=== PATIENT | female | born 1970 | race Caucasian/White ===

== ENCOUNTER 2017-03-11 12:09 | Inpatient (IN) | payer OTHER ==
[~2017-03-11] VITALS: Ht 165.1 cm; Wt 72.4 kg
[2017-03-11 12:10] VITALS: Ht 165.1 cm; Wt 72.4 kg
[2017-03-11] MEDS ORDERED: HYDROmorphONE 1 MG/ML SYG IV STA ×2 (12:36→18:58)
[2017-03-11] MEDS ORDERED: ONDANSETRON 4 MG INJ IV STA (12:36)
[2017-03-11 13:34] LABS: ABNORMAL IP MESSAGE 1; BASOPHILS % 0.3 % (0.0-2.0); EOSINOPHILS # 0.1 10^3/ul (0.0-0.5); EOSINOPHILS % 0.4 % (0.0-7.0); HEMATOCRIT 38.9 % (37.0-47.0); HEMOGLOBIN 13.3 g/dl (12.0-16.0); LYMPHOCYTES # 1.3 10^3/ul (0.8-2.9); LYMPHOCYTES % 9.8 % (15.0-51.0); MEAN CORPUSCULAR HGB CONC 34.2 g/dl (32.0-37.0); MEAN CORPUSCULAR VOLUME 93.7 fl (82.0-101.0); MEAN PLATELET VOLUME 10.4 fl (7.4-10.4); MONOCYTE # 1.5 10^3/ul (0.3-0.9); MONOCYTES % 11.2 % (0.0-11.0); NEUTROPHIL # 10.6 10^3/ul (1.6-7.5); NEUTROPHILS % 77.9 % (39.0-77.0); PLATELET COUNT 281 10^3/UL (140-415); RED BLOOD COUNT 4.15 10^6/ul (4.20-5.40); RED CELL DISTRIBUTION WIDTH 12.8 % (11.5-14.5); WHITE BLOOD COUNT 13.6 10^3/ul (4.8-10.8)
[2017-03-11 13:41] LABS: POSITIVE DIFF @See below
[2017-03-11 13:57] LABS: CALCIUM 9.3 mg/dl (8.4-10.2); CREATININE 0.73 mg/dl (0.44-1.00); POTASSIUM 3.6 mmol/L (3.5-5.1)
[2017-03-11 14:09] LABS: C-REACTIVE PROTEIN 14.2 mg/dl (0.0-0.9)
[2017-03-11] MEDS ORDERED: LIDOCAINE 1% (MDV) 20 ML INJ SC ONE (14:30)
--- NOTE | 2017-03-11 14:55 | RADRPT ---
PROCEDURE: CT left hip without contrast. CLINICAL INDICATION: Leg pain TECHNIQUE: CT scan of the left hip was performed on a multi -slice scanner. No IV contrast was ad ministered. Coronal and sagittal reformatted images were obtained from the axial source images. Th e total exam DLP equals 549 mGy-cm. The CDTI volume was 18 mGy. Images were reviewed on a high-resol Xspand PACS workstation. One or more of the following dose reduction techniques were used: Automated exposure control Adjustment of the mA and/or kV according to patient size. Use of iterative reconstruction technique. COMPARISON: None. FINDINGS: There is no acute fracture or dislocation. There is minimal joint space narrowing along the anterior aspect of the left hip joint with minimal osseous spurring. There is no avascular necrosis or bony destructive changes. No cortical destruction or periosteal reaction is present. There is a moderate joint effusion. The muscles and soft tissues around the left hip are otherwise unremarkable. The fat planes around t he sciatic nerve are unremarkable. The visualized left sacroiliac joint is intact. Pubic symphysis is intact with mild osseous spurring . RPTAT: ZZ IMPRESSION: 1. Minimal osteoarthrosis of the left hip. No acute fracture or dislocation. 2. Moderate joint effusion. A follow-up MRI of the left hip may be helpful for additional evaluation . .Isamar Mccrary MD, MD Date Time Electronically viewed and signed by .Isamar Mccrary MD, MD on 03/11/2017 14:55 .T/
[2017-03-11] MEDS ORDERED: BUPIVACAINE 0.5% 30 ML VIAL INJ ONE (16:00)
[2017-03-11] MEDS ORDERED: METHYLPREDNISOLONE 40 MG INJ IV ONE (16:00)
[2017-03-11] MEDS ORDERED: LIDOCAINE 1% (MDV) 20 ML INJ ONE (17:22)
[2017-03-11] MEDS ORDERED: IOHEXOL 300MG/ML 30 ML BTL ONE (17:22)
[2017-03-11] MEDS ORDERED: ACETAMINOPHEN 325 MG TAB PO ONE (17:30)
--- NOTE | 2017-03-11 17:42 | ERA ---
ER Documentation Chief Complaint Date/Time DATE: 03/11/17 TIME: 17:30 Chief Complaint LEFT THIGH PAIN DOWN TO LEFT LEG X 2 DAYS, DENIES INJURY HPI This a 46-year-old female with a history of rheumatoid arthritis complains of pain in the left hip and left thigh for the past 2 days. She says she has had this before and is likely rheumatoid arthritis flareup. She says that she has had some chills but has not documented a fever. Pain is sharp in the left hip radiates down the medial part of the thigh severe pain with movement is better with rest but still there. No swelling of other joints. ROS All systems reviewed and are negative except as per history of present illness. Medications Home Meds Reported Medications Methotrexate* (Methotrexate*) 2.5 Mg Tab, 20 MG PO WEEKLY, TAB 03/11/17 [Ferrous Sulfate 5GR] No Conflict Check, 1 TAB PO BID 03/11/17 [Wild-Plex 85MG] No Conflict Check, 1 CAP PO DAILY 03/11/17 Docusate Sodium* (Colace*) 100 Mg Capsule, 100 MG PO BID, #60 CAP 03/11/17 Folic Acid* (Folic Acid*) 1 Mg Tablet, 1 MG PO DAILY, TAB 03/11/17 Omeprazole* (Omeprazole*) 20 Mg Capsule.dr, 20 MG PO DAILY, #30 CAP 03/11/17 Allergies Allergies: Coded Allergies: No Known Allergy (Unverified , 03/11/17) PMhx/Soc History of Surgery: No Anesthesia Reaction: No Hx Neurological Disorder: No Hx Respiratory Disorders: No Hx Cardiac Disorders: No Hx Psychiatric Problems: No Hx Miscellaneous Medical Probl: Yes (RA) Hx Alcohol Use: No Hx Substance Use: No Hx Tobacco Use: No Smoking Status: Never smoker FmHx Family History: No coronary disease Physical Exam Vitals Vital Signs Date Time Temp Pulse Resp B/P Pulse Ox O2 Delivery O2 Flow Rate FiO2 03/11/17 16:05 100.0 77 18 108/65 99 Room Air 03/11/17 12:10 97.5 72 18 113/55 99 Physical Exam Const: Well-developed, well-nourished Head: Atraumatic, normocephalic Eyes: Normal Conjunctiva, PERRLA, EOMI, normal sclera, no nystagmus ENT: Normal External Ears, Nose and Mouth, moist mucus membranes. Neck: Full range of motion. No meningismus, no lymphadenopathy. Resp: Clear to auscultation bilaterally, no wheezing, rhonchi, rales Cardio: Regular rate and rhythm, no murmurs, S1 S2 present Abd: Soft, non tender x 4, non distended. Normal bowel sounds, no guarding or rebound, no pulsitile abdominal masses or bruits Skin: No petechiae or rashes, no ecchymosis , no maculopapular rash Back: No midline or flank tenderness Ext: No cyanosis, or edema, FROM x 3, normal inspection, neurovascularly intact x 4, there is severe pain in the left hip with range of motion. Neur: Awake and alert, STR 5/5 x 4, sensation intact x 4, no focal findings, cerebellum intact Psych: Normal Mood and Affect Result Diagram: 03/11/17 1313 03/11/17 1313 Results 24 hrs Laboratory Tests Test 03/11/17 13:13 White Blood Count 13.610^3/ul Red Blood Count 4.1510^6/ul Hemoglobin 13.3g/dl Hematocrit 38.9% Mean Corpuscular Volume 93.7fl Mean Corpuscular Hemoglobin 32.0pg Mean Corpuscular Hemoglobin Concent 34.2g/dl Red Cell Distribution Width 12.8% Platelet Count 87638^3/UL Mean Platelet Volume 10.4fl Neutrophils % 77.9% Lymphocytes % 9.8% Monocytes % 11.2% Eosinophils % 0.4% Basophils % 0.3% Nucleated Red Blood Cells % 0.0/100WBC Neutrophils # 10.610^3/ul Lymphocytes # 1.310^3/ul Monocytes # 1.510^3/ul Eosinophils # 0.110^3/ul Basophils # 0.010^3/ul Nucleated Red Blood Cells # 0.010^3/ul Erythrocyte Sedimentation Rate 40mm/Hr Sodium Level 139mmol/L Potassium Level 3.6mmol/L Chloride Level 105mmol/L Carbon Dioxide Level 25mmol/L Anion Gap 13 Blood Urea Nitrogen 11mg/dl Creatinine 0.73mg/dl Glucose Level 124mg/dl Calcium Level 9.3mg/dl C-Reactive Protein 14.2mg/dl Serum HCG, Qualitative NEGATIVE Current Medications Medications (Trade) Dose Ordered Sig/Emerita Route PRN Reason Start Time Stop Time Status Last Admin Dose Admin Hydromorphone HCl (Dilaudid) 1 mg ONCE STAT IV 03/11/17 12:36 03/11/17 12:40 DC 03/11/17 13:14 Ondansetron HCl (Zofran Inj) 4 mg ONCE STAT IV 03/11/17 12:36 03/11/17 12:40 DC 03/11/17 13:14 Lidocaine (Xylocaine 1% (Mdv) 20 ml) 20 ml ONCE ONCE SC 03/11/17 14:30 03/11/17 14:31 DC 03/11/17 15:10 Methylprednisolone Sodium Succinate (Solu-Medrol) 40 mg ONCE ONCE IV 03/11/17 16:00 03/11/17 16:01 DC Bupivacaine HCl (Marcaine 0.5%) 3 ml ONCE ONCE INJ 03/11/17 16:00 03/11/17 16:01 DC Acetaminophen (Tylenol Tab) 650 mg ONCE ONCE PO 03/11/17 17:30 03/11/17 17:31 DC 03/11/17 17:05 Iohexol (Omnipaque 300mg/ ml) 30 ml STK-MED ONCE .ROUTE 03/11/17 17:22 03/11/17 17:23 DC Lidocaine (Xylocaine 1% (Mdv) 20 ml) 20 ml STK-MED ONCE .ROUTE 03/11/17 17:22 03/11/17 17:23 DC Ondansetron HCl (Zofran Inj) 4 mg BRIDGE ORDER PRN IV NAUSEA AND/OR VOMITING 03/11/17 19:00 03/12/17 18:59 Acetaminophen 650 mg 650 mg ER BRIDGE PRN PO MILD PAIN/FEVER 03/11/17 19:00 03/12/17 18:59 Cefepime HCl 50 ml @ 100 mls/hr ONCE STAT IVPB 03/11/17 18:47 03/11/17 19:16 UNV Vancomycin HCl (Vancocin) 250 ml @ 125 mls/hr ONCE ONCE IVPB 03/11/17 19:00 03/11/17 20:59 UNV Procedures/MDM PROCEDURE: CT left hip without contrast. CLINICAL INDICATION: Leg pain TECHNIQUE: CT scan of the left hip was performed on a multi -slice scanner. No IV contrast was administered. Coronal and sagittal reformatted images were obtained from the axial source images. The total exam DLP equals 549 mGy-cm. The CDTI volume was 18 mGy. Images were reviewed on a high-resolution PACS workstation. One or more of the following dose reduction techniques were used: Automated exposure control Adjustment of the mA and/or kV according to patient size. Use of iterative reconstruction technique. COMPARISON: None. FINDINGS: There is no acute fracture or dislocation. There is minimal joint space narrowing along the anterior aspect of the left hip joint with minimal osseous spurring. There is no avascular necrosis or bony destructive changes. No cortical destruction or periosteal reaction is present. There is a moderate joint effusion. The muscles and soft tissues around the left hip are otherwise unremarkable. The fat planes around the sciatic nerve are unremarkable. The visualized left sacroiliac joint is intact. Pubic symphysis is intact with mild osseous spurring. RPTAT: ZZ IMPRESSION: 1. Minimal osteoarthrosis of the left hip. No acute fracture or dislocation. 2. Moderate joint effusion. A follow-up MRI of the left hip may be helpful for additional evaluation. .Isamar Mccrary MD, MD Date Time Electronically viewed and signed by .Isamar Mccrary MD, MD on 03/11/2017 14: 55 .T/ CC: VICK RAM DO Arthrocentesis by me: Patient consented, sterilely draped, full prep, time out performed. Anesthesia: 1% lidocaine locally Location: Left hip Technique: 23 gauge spinal needle aspiration Results: 0 ml of serous fluid Complications: Minimal bleeding. No complications. ED Ultrasound: Joint effusion localized by me using concurrent ultrasound guidance and assessment of the anatomy. Real time image archived in the medical record confirms anatomy. Unable to aspirate any fluid out of hip. The CT scan shows that there is layering posteriorly. Or the fluid is just too thick to aspirate. Spoke with radiology he will get the fluid out via fluoroscopy Patient is elevated white blood count, CRP, sed rate. Patient developed a 100.1 temperature here. We will admit the patient for septic left hip. Versus rheumatoid arthritis exacerbation spoke to dr mccallum. of ortho . will see pending cell count and diff/ tap results IR was able to get fluid out of the left hip. Fluid looks very cloudy yellow will start antibiotics now and blood cultures Departure Diagnosis: Primary Impression: Septic joint Qualified Code: M00.9 - Pyogenic arthritis of left hip, due to unspecified organism Condition: Stable VICK RAM DO Mar 11, 2017 17:42
[2017-03-11] MEDS ORDERED: FOLI-49 PO (17:52)
[2017-03-11] MEDS ORDERED: DOCU-144 PO (17:52)
[2017-03-11] MEDS ORDERED: OMEP20CA16 PO (17:52)
[2017-03-11] MEDS ORDERED: [UNRECOGNIZED DRUG - OTHER] PO (17:53)
[2017-03-11] MEDS ORDERED: FERROUS SULFATE PO (17:54)
[2017-03-11] MEDS ORDERED: MET25 PO (17:56)
[2017-03-11] MEDS ORDERED: CEFEPIME 2GM/50 ML (PMX) 50 ML IVPB STA (18:47)
[2017-03-11] MEDS ORDERED: ONDANSETRON 4 MG INJ IV PRN ×2 (19:00)
[2017-03-11] MEDS ORDERED: DOCUSATE SODIUM 100 MG CAP PO PRN (19:00)
[2017-03-11] MEDS ORDERED: ACETAMINOPHEN 325 MG TAB PO PRN ×2 (19:00)
[2017-03-11] MEDS ORDERED: VANCOMYCIN IV PER PHARMACY XX SCH (19:00)
[2017-03-11] MEDS ORDERED: LORAZEPAM 2 MG INJ IV PRN (19:00)
[2017-03-11] MEDS ORDERED: MAGNESIUM HYDROXIDE 30ML CUP PO PRN (19:00)
[2017-03-11] MEDS ORDERED: hydrALAzine 20 MG INJ IV PRN (19:00)
[2017-03-11] MEDS ORDERED: NA PHOSPHATE/BIPHOS 133 ML ENEMA PR PRN (19:00)
[2017-03-11] MEDS ORDERED: ALBUTEROL/IPRATROPIUM (NEB) 3 ML AMP HHN PRN (19:00)
[2017-03-11] MEDS ORDERED: NITROGLYCERIN (SL) 0.4 MG TAB SL PRN (19:00)
[2017-03-11] MEDS ORDERED: VANCOMYCIN 1 GM (PMX) 250 ML IVPB ONE (19:00)
[2017-03-11] MEDS ORDERED: NACL 0.9% 3 ML SYG IV SCH (19:00)
[2017-03-11 19:02] VITALS: TEMP 99.2
--- NOTE | 2017-03-11 19:11 | RADRPT ---
PROCEDURE: Fluoroscopy-guided left hip joint aspiration. CLINICAL INDICATION: Left hip pain. TECHNIQUE: The risk and benefits of the procedure were explained to the patient including but not limited to bleeding, infection, pain, and failed procedure. The patient understood the risks benefi ts and alternatives of the procedure and wished to proceed with the examination. Informed written c onsent was obtained. A preliminary time-out was performed. Utilizing CT guidance, an 18-gauge need le was introduced into the left femoral acetabular compartment after the region was prepared and howie ped in the usual sterile fashion. Approximately 4.5 cc of yellow, viscous, mildly cloudy fluid was aspirated. The needle was removed and a bandage was placed. The patient tolerated the procedure well . Number of images obtained: 4. Fluoroscopy time: 0.7 minutes. Estimated cumulative dose: 11.2 mGy. COMPARISON: Correlation with CT lower extremity from the same day. FINDINGS: Successful fluoroscopy-guided left hip joint aspiration. Approximately 4.5 cc of viscous, mildly jose udy, yellow fluid was aspirated and sent to the laboratory for further evaluation. IMPRESSION: Successful left hip joint aspiration as above. RPTAT: QQ .Dwight Leija MD, Date Time Electronically viewed and signed by .Dwight Leija MD, MD on 03/11/2017 19:11 .A/
[2017-03-11 19:22] LABS: FLD PMN% 89.3 %; FLD RBC 16 /uL; FLD WBC 82538 /cmm
[2017-03-11 19:49] LABS: FLD MN% 10.7 %
[2017-03-11 19:50] LABS: FLD CLARITY CLOUDY; FLD COLOR OPAQUE; FLD TYPE LEFT HIP ASPIRATE
--- NOTE | 2017-03-11 20:25 | HP ---
DATE OF ADMISSION: 03/11/2017 CHIEF COMPLAINT: Left leg and hip pain. HISTORY OF PRESENT ILLNESS: A 46-year-old with past medical history of rheumatoid arthritis and anemia, who has been having left hip pain and left thigh pain for the last few days. She denies any prior history of this. Denies any trauma to the area. No recent surgeries. She has been having subjective chills at home, but no fever. She took Tylenol and Motrin at home, which did not relieve her symptoms. Pain is described as sort of a sharp in intensity radiating down the medial part of her thigh. No chest pain or shortness of breath. No upper lower GI bleeding. No diarrhea or constipation. No nausea or vomiting. When she arrives to the ER today she was found with a temperature 100.0, and her white count was also elevated as well. The ER performed a tap, concern about septic infection and apparently the Orthopedic Surgery was actually also call the help consult on the case. The patient also complained of some right shoulder pain and this is for the last 1 or 2 days. She also has been using a cane to help her ambulate for last couple of days. PAST MEDICAL HISTORY: Above. ALLERGIES: NO KNOWN DRUG ALLERGIES. HOME MEDICATIONS: Methotrexate 20 mg every week, Colace 100 mg twice a day, omeprazole 20 mg daily, folic acid 1 mg daily, and ferrous sulfate 1 tab twice a day. PAST SURGICAL HISTORY: She has had times 2 in the past, tummy tuck surgery in past, and breast augmentation surgery. FAMILY HISTORY: Mother positive rheumatoid arthritis. SOCIAL HISTORY: Negative for smoking, drinking, or IV drug abuse. PHYSICAL EXAMINATION: VITAL SIGNS: T-max 100.0, pulse 70-77, respirations 18, blood pressure 113/55, and satting 99 percent room air. GENERAL: Patient lying in bed, answers question appropriately. In mild distress but alert. HEENT: Pupils equal, round, react to light. Extraocular muscles intact. NECK: Supple. No thyromegaly. LUNGS: Clear to auscultation bilaterally. CARDIOVASCULAR: S1, S2 heard. No rubs, gallops. ABDOMEN: Soft, nontender, nondistended. Normal bowel sounds. No rebound or guarding. MUSCULOSKELETAL: No lower extremity edema bilaterally. There is some pain with range of motion of the left hip with some tenderness to palpation in the left hip area. NEUROLOGIC: No focal deficits. LABS: WBC 13.6, hemoglobin 13.3, hematocrit 38.9, and platelets 281. The basic metabolic panel is normal. CRP is 14.2, ESR is 40, both are elevated. She had a CT performed of the left hip that showed minimal osteoarthrosis of the left hip, but no fractures or dislocations. There is moderate joint effusion as well. ASSESSMENT/PLAN: A 46-year-old female coming in with left hip pain with signs of possible septic joint infections. 1. Left hip pain and fever. We will admit the patient to Med Surg floor. Again concerned about a septic joint. Again we will follow up final culture results from the fluid that was aspirated earlier today. Put her on broad-spectrum antibiotics. Get ID consult. Tylenol p.r.n. pain and fevers. Also check TSH, A1c, and lipid panel. Follow up Orthopedic recommendations as well. Consider PT consult as well. 2. History of rheumatoid arthritis. Continue to monitor for now. The patient does take methotrexate weekly. We will need to discuss further with her when her next dose is due. Continue folic acid. 3. History of anemia. Hemoglobin is presently stable. Monitor for now. No signs of any bleeding. 4. Deep venous thrombosis (DVT) prophylaxis. Heparin subcutaneous. Dictated By: Enrrique Abdi MD /debby/jose /Document#: [id number]
[2017-03-11] MEDS: SOD CHLORIDE 0.9% 1,000 ML IV SCH (20:26)
[2017-03-11] MEDS ORDERED: HYDROmorphONE 1 MG/ML SYG IV ONE (20:39)
[2017-03-11 20:45] LABS: PATH REVIEW? NO
[2017-03-11 21:15] VITALS: BP 109/62; RESP 19
[2017-03-11] MEDS: HEPARIN 5,000 UNIT/0.5 ML VIAL SC SCH (22:03)
[2017-03-12] MEDS: morphine 2 MG INJ IV PRN ×5 (01:44→20:33)
[2017-03-12] MEDS: PIPER-TAZO 3.375 GM IV (PMX) 100 ML IVPB SCH ×4 (01:44→18:47)
[2017-03-12 02:00] VITALS: BP 103/57; RESP 20
[2017-03-12] MEDS: HYDROCODONE/APAP (5/325) TAB PO PRN ×3 (03:29→18:47)
[2017-03-12] MEDS: VANCOMYCIN 1 GM in NS 250 ML IVPB SCH ×2 (04:11→16:32)
[2017-03-12] MEDS: SOD CHLORIDE 0.9% 1,000 ML IV SCH ×3 (05:50→21:16)
[2017-03-12 06:16] LABS: BASOPHILS % 0.2 % (0.0-2.0); EOSINOPHILS # 0.1 10^3/ul (0.0-0.5); EOSINOPHILS % 0.5 % (0.0-7.0); HEMATOCRIT 33.7 % (37.0-47.0); HEMOGLOBIN 11.3 g/dl (12.0-16.0); LYMPHOCYTES # 1.9 10^3/ul (0.8-2.9); MEAN CORPUSCULAR HEMOGLOBIN 31.4 pg (29.0-33.0); MEAN CORPUSCULAR HGB CONC 33.5 g/dl (32.0-37.0); MEAN CORPUSCULAR VOLUME 93.6 fl (82.0-101.0); MEAN PLATELET VOLUME 10.5 fl (7.4-10.4); MONOCYTE # 1.3 10^3/ul (0.3-0.9); NEUTROPHIL # 7.8 10^3/ul (1.6-7.5); NEUTROPHILS % 70.1 % (39.0-77.0); PLATELET COUNT 245 10^3/UL (140-415); RED CELL DISTRIBUTION WIDTH 12.9 % (11.5-14.5); WHITE BLOOD COUNT 11.1 10^3/ul (4.8-10.8)
[2017-03-12 06:34] LABS: ADD UMIC YES; UR ASCORBIC ACID NEGATIVE (NEGATIVE); UR BILIRUBIN (Dip) NEGATIVE (NEGATIVE); UR BLOOD (Dip) 1+ mg/dL (NEGATIVE); UR CLARITY CLEAR (CLEAR); UR COLOR YELLOW (YELLOW); UR GLUCOSE (Dip) NEGATIVE (NEGATIVE); UR KETONES (Dip) 1+ mg/dL (NEGATIVE); UR LEUKOCYTE ESTERASE (Dip) NEGATIVE Leu/ul (NEGATIVE); UR NITRITE (Dip) NEGATIVE (NEGATIVE); UR RBC 16 /HPF (0-5); UR SPECIFIC GRAVITY (Dip) 1.019 (1.003-1.030); UR TOTAL PROTEIN (Dip) 1+ mg/dl (NEGATIVE); UR UROBILINOGEN (Dip) NEGATIVE (NEGATIVE)
[2017-03-12 07:00] LABS: CALCIUM 8.2 mg/dl (8.4-10.2); CREATININE 0.71 mg/dl (0.44-1.00); PHOSPHORUS 3.1 mg/dl (2.5-4.9); POTASSIUM 3.6 mmol/L (3.5-5.1)
[2017-03-12 07:49] VITALS: BP 104/63; RESP 18
[2017-03-12 07:58] LABS: THYROID STIMULATING HORMONE 3.41 MIU/L (0.465-4.680)
[2017-03-12] MEDS: FOLIC ACID 1 MG TAB PO SCH (08:31)
[2017-03-12] MEDS: HEPARIN 5,000 UNIT/0.5 ML VIAL SC SCH ×2 (08:31→21:28)
[2017-03-12 11:32] VITALS: BP 120/76; PULSE 69
--- NOTE | 2017-03-12 12:59 | CONS ---
DATE OF ADMISSION: 03/11/2017 DATE OF CONSULTATION: 03/12/2017 REASON FOR CONSULTATION: Antibiotic management. HISTORY OF PRESENT ILLNESS: Emily Jarquin is a 46-year-old, female who she comes in with left leg and hip pain. Her past problems include: 1. History of rheumatoid arthritis. 2. Anemia. 3. Status post x2. 4. History of tummy tuck surgery in the past. 5. Breast augmentation surgery. Acutely, the patient has a history of rheumatoid arthritis and has been having left hip pain and left thigh pain for the last few days. She denies trauma. No recent surgery. She has had subjective chills at home, but no fever. She took Tylenol and Motrin at home. The pain is sharp in intensity, radiating down the medial aspect of her thigh. When she arrived at the emergency room, she had a temperature of 100. Emergency room performed an aspiration and Orthopedic Surgery was also there to help consult on the case. She also complained of some right shoulder pain. She has been having to walk with a cane for the last few days. On admission, her white count was 13.6, H and H of 13.3 and 38.9, platelet count 281,000. CRP is 14.2, sed rate is 40, both elevated. A CT scan performed in the left hip showed minimal osteoarthritis of left hip. No fractures or dislocation. There is a moderate joint effusion as well. PAST MEDICAL HISTORY: Operations as outlined. FAMILY HISTORY: Positive for rheumatoid arthritis in her mother. SOCIAL HISTORY: She does not smoke, drink, or abuse drugs. ALLERGIES: NONE TO PENICILLIN, SULFA, OR FOODS. MEDICATION: 1. Methotrexate 20 mg per week. 2. Omeprazole. 3. Folic acid. 4. Colace. REVIEW OF SYSTEMS: Noncontributory. PHYSICAL EXAMINATION: GENERAL: Patient is a well-developed, well-nourished female who is alert, responsive, in no acute distress. VITAL SIGNS: Stable. T-max is 100. SKIN: Without generalized rash. HEENT: Within normal limits. NECK: Supple. Lymph nodes nonpalpable. CHEST: Decreased breath sounds at the bases. HEART: Without murmur or gallop. ABDOMEN: Soft, nontender, without organosplenomegaly or masses. EXTREMITIES: Without cyanosis, clubbing, or edema. RECTAL: Deferred. NEUROLOGICAL: No focal neurological abnormalities. IMPRESSION AND PLAN: The patient is a 46-year-old female, who comes in with left hip pain and fever. She had aspiration of her hip. Gram stain was done. Cultures show no growth at 24 hours. Patient was started on vancomycin and Zosyn for the possibility of infected hip. As noted, CT scan showed minimal osteoarthrosis of the left hip, moderate joint effusion. I concur with the current regimen. I will dictate my findings to the hospitalist. Dictated By: Valentin Reyes MD JD/debby/iman /Document#: [id number]
--- NOTE | 2017-03-12 13:21 | PN ---
Date/Time of Note Date/Time of Note DATE: 03/12/17 TIME: 13:16 Assessment/Plan VTE Prophylaxis VTE Prophylaxis Intervention: heparin Lines/Catheters IV [facility] Peripheral IV Urinary Cath still in place: No Assessment/Plan Chief Complaint/Hosp Course ASSESSMENT/PLAN: A 46-year-old female coming in with left hip pain with signs of possible septic joint infections. 1. Left hip pain and fever - Again concerned about a septic joint. -Follow-up final culture results from the fluid that was aspirated earlier . Preliminary wound culture is negative -Continue broad-spectrum antibiotics, and follow-up ID consult recommendations -Tylenol p.r.n. pain and fevers. -Follow-up TSH, A1c, and lipid panel. Follow up Orthopedic recommendations as well. -PT consult as well. 2. History of rheumatoid arthritis. Continue to monitor for now. The patient does take methotrexate weekly. We will need to discuss further with her when her next dose is due. Continue folic acid. 3. History of anemia. Hemoglobin is presently stable. Monitor for now. No signs of any bleeding. 4. Deep venous thrombosis (DVT) prophylaxis. Heparin subcutaneous. Problems: Subjective 24 Hr Interval Summary Free Text/Dictation Patient still complaining of some left hip pain. Still waiting to be seen by orthopedic surgery team. No fevers overnight. Exam/Review of Systems Vital Signs Vitals Vital Signs Date Time Temp Pulse Resp B/P Pulse Ox O2 Delivery O2 Flow Rate FiO2 03/12/17 11:32 69 120/76 03/12/17 07:49 96.5 18 100 03/11/17 19:02 Room Air Intake and Output 03/11/17 03/11/17 03/12/17 15:00 23:00 07:00 Intake Total 1590 ml Output Total 500 ml Balance 1090 ml Exam GENERAL: Patient lying in bed, answers question appropriately. In mild distress but alert. HEENT: Pupils equal, round, react to light. Extraocular muscles intact. NECK: Supple. No thyromegaly. LUNGS: Clear to auscultation bilaterally. CARDIOVASCULAR: S1, S2 heard. No rubs, gallops. ABDOMEN: Soft, nontender, nondistended. Normal bowel sounds. No rebound or guarding. MUSCULOSKELETAL: No lower extremity edema bilaterally. There is some pain with range of motion of the left hip with some tenderness to palpation in the left hip area. NEUROLOGIC: No focal deficits. Results Result Diagram: 03/12/17 0524 03/12/17 0524 Results 24 hrs Laboratory Tests Test 03/11/17 18:30 03/12/17 05:00 03/12/17 05:24 Pathologist Review (Hematology) NO Body Fluid Type LEFT HIP ASPIRATE Body Fluid Volume 4.0 Body Fluid Color [place] Body Fluid Appearance CLOUDY Body Fluid WBC 73660 Body Fluid RBC (Auto) 16 Body Fluid Polynuclear WBCs (%) 89.3 Body Fluid Mononuclear Cells % Auto 10.7 Urine Color YELLOW Urine Clarity CLEAR Urine pH 6.0 Urine Specific [place] 1.019 Urine Ketones 1+ H Urine Nitrite NEGATIVE Urine Bilirubin NEGATIVE Urine Urobilinogen NEGATIVE Urine Leukocyte Esterase NEGATIVE Urine Microscopic RBC 16 H Urine Microscopic WBC 4 Urine Hemoglobin 1+ H Urine Glucose NEGATIVE Urine Total Protein 1+ H White Blood Count 11.1 H Red Blood Count 3.60 L Hemoglobin 11.3 L Hematocrit 33.7 L Mean Corpuscular Volume 93.6 Mean Corpuscular Hemoglobin 31.4 Mean Corpuscular Hemoglobin Concent 33.5 Red Cell Distribution Width 12.9 Platelet Count 245 Mean Platelet Volume 10.5 H Neutrophils % 70.1 Lymphocytes % 17.0 Monocytes % 12.0 H Eosinophils % 0.5 Basophils % 0.2 Nucleated Red Blood Cells % 0.0 Neutrophils # 7.8 H Lymphocytes # 1.9 Monocytes # 1.3 H Eosinophils # 0.1 Basophils # 0.0 Nucleated Red Blood Cells # 0.0 Sodium Level 138 Potassium Level 3.6 Chloride Level 108 Carbon Dioxide Level 21 Anion Gap 13 Blood Urea Nitrogen 8 Creatinine 0.71 Glucose Level 106 Hemoglobin A1c 5.4 Calcium Level 8.2 L Phosphorus Level 3.1 Magnesium Level 2.0 Triglycerides Level 62 Cholesterol Level 141 LDL Cholesterol, Calculated 83 HDL Cholesterol 46 Cholesterol/HDL Ratio 3.0 Thyroid Stimulating Hormone (TSH) 3.410 Medications Medications Current Medications Ondansetron HCl (Zofran Inj) 4 mg Q6H PRN IV NAUSEA AND/OR VOMITING; Start at 19:00 Acetaminophen (Tylenol Tab) 650 mg Q6H PRN PO PAIN LEVEL 1-3 OR FEVER; Start at 19:00 Acetaminophen/ Hydrocodone Bitart ([place] (5/325)) 1 tab Q6H PRN PO MODERATE PAIN LEVEL 4-6 Last administered on 03/12/17 10:06; Admin Dose 1 TAB; Start at 19:00 Morphine Sulfate (morphine) 2 mg Q4H PRN IV SEVERE PAIN LEVEL 7-10 Last administered on 03/12/17 11:34; Admin Dose 2 MG; Start 03/11/17 at 19:00 Docusate Sodium (Colace) 100 mg Q12H PRN PO CONSTIPATION; Start 03/11/17 at 19: 00 Magnesium Hydroxide (Milk Of Mag) 30 ml DAILY PRN PO CONSTIPATION; Start at 19:00 Sodium Biphosphate/ Sodium Phosphate (Fleet Enema) 133 ml DAILY PRN AL CONSTIPATION; Start 03/11/17 at 19:00 Heparin Sodium (Porcine) (Heparin (5000 Units/0.5 ml)) 5,000 unit Q12 SC Last administered on 03/12/17 08:31; Admin Dose 5,000 UNIT; Start 03/11/17 at 21:00 Lorazepam 0.5 mg 0.5 mg Q6H PRN IV ANXIETY Last administered on 03/11/17 20:47 ; Admin Dose 0.5 MG; Start 03/11/17 at 19:00 Sodium Chloride 1,000 ml @ 100 mls/hr Q10H IV Last administered on 03/12/17 05:50; Admin Dose 100 MLS/HR; Start 03/11/17 at 18:49 Piperacillin Sod/ Tazobactam Sod (Zosyn 3.375gm/ 100 ml (Pmx)) 100 ml @ 200 mls /hr Q6 IVPB Last administered on 03/12/17 11:35; Admin Dose 200 MLS/HR; Start 03/12/17 at 00:00 Vancomycin HCl (Vanco Iv Per Pharmacy) VANCOMYCIN PER PHARMACY NOTE XX ; Start 03/11/17 at 19:00 Hydralazine HCl (Apresoline) 10 mg Q6H PRN IV ELEVATED BLOOD PRESSURE; Start at 19:00 Nitroglycerin (Nitroglycerin (Sl Tab) 0.4 Mg) 1 tab Q5M PRN SL ANGINA; Start at 19:00 Folic Acid 1 mg 1 mg DAILY PO Last administered on 03/12/17 08:31; Admin Dose 1 MG; Start 03/12/17 at 09:00 Vancomycin HCl (Vancocin) 250 ml @ 125 mls/hr Q12H IVPB Last administered on t 04:11; Admin Dose 125 MLS/HR; Start 03/12/17 at 04:00 Miscellaneous Information (*Rx Drug Level Order Reminder*) VANCOMYCIN TROUGH AT 1500 ONCE ONCE XX ; Start 03/13/17 at 15:00; Stop 03/13/17 at 15:01 EVIE DAVID Mar 12, 2017 13:21
[2017-03-12 14:23] VITALS: BP 101/59; RESP 17
--- NOTE | 2017-03-12 16:47 | CONS ---
DATE OF ADMISSION: 03/11/2017 DATE OF CONSULTATION: 03/12/2017 CHIEF COMPLAINT: Left hip pain. HISTORY OF PRESENT ILLNESS: This is a 46-year-old female with history of rheumatoid arthritis complaining of a 3-day history of left groin pain. The patient has been unable to ambulate. She describes fevers at home. She denies any history of trauma. She is on medications including methotrexate for rheumatoid arthritis. She states that the pain is in the left groin with radiation to the left lower knee. PAST MEDICAL HISTORY: Rheumatoid arthritis. MEDICATION: 1. Methotrexate. 2. Folic acid. PAST SURGICAL HISTORY: None. SOCIAL HISTORY: Denies tobacco, alcohol, or drug use. FAMILY HISTORY: Noncontributory. ALLERGIES: NO KNOWN DRUG ALLERGIES. REVIEW OF SYSTEMS: Negative except per HPI. PHYSICAL EXAMINATION: VITAL SIGNS: Temperature 96.5, blood pressure 120/76, pulse 69. GENERAL: Patient in no acute distress. She is alert and oriented x3. She is resting comfortably. MUSCULOSKELETAL: Left hip, the patient has decreased range of motion. She has 0-40 degrees painful range of motion of the left hip. She is neurovascular intact in the left lower extremity with palpable pulses. DIAGNOSTIC DATA: CT left hip, no fractures or dislocations are noted. There is moderate joint effusion. LABORATORY DATA: White blood cell count 11.1. ESR 40. CRP is 14.2. Left hip aspiration, opaque, cloudy appearance, 82,538 white cells with 89.3 percent polynuclear white cells. IMPRESSION: A 46-year-old female with left hip pain and elevated laboratory data. PLAN: I explained to the patient given her symptoms, as well as laboratory data, I am concerned for a left septic hip. The patient is currently on IV piperacillin tazobactam. She will be n.p.o. after midnight. We will obtain consent for left hip irrigation and debridement. I discussed the risks associated with surgery which include, but not limited to, infection, deep venous thrombosis, pulmonary embolism, damage to neurovascular structures including the lateral femoral cutaneous nerve, femoral nerve, femoral artery, femoral vein, weakness of the quadriceps, destruction of the cartilage, need for hip replacement in the future, continued pain, risks associated with anesthesia, need for blood transfusion, and even . She will be n.p.o. after midnight. All questions were answered to her satisfaction. Dictated By: Abdoul Jeronimo MD /debby/ricarda /Document#: [id number]
--- NOTE | 2017-03-12 17:35 | RADRPT ---
PROCEDURE: MRI OF THE LEFT HIP CLINICAL INDICATION: Left hip pain. Difficulty walking. TECHNIQUE: Multiple MR pulse sequences in multiple planes were obtained. Images were interpreted o high-resolution PACS system. COMPARISON: CT from 03/12/2017. FINDINGS: Intrarticular: There is an undersurface tear of the anterior superior labrum seen on the sagittal s equence image 16. The cartilage is preserved. There is a large hip joint effusion noting edema in th e periarticular soft tissues. No abnormal bone marrow edema is seen at the joint margins. Extra-articular: There is a mild amount of edema seen in the iliopsoas bursa. No abnormal intramusc ular fluid collections are identified. There is edema in the hip adductors. The bladder is noted to be markedly distended. There are prominent inguinal lymph nodes, likely reac tive in nature. IMPRESSION: 1. Large left hip joint effusion noting edema in the periarticular soft tissues, which is nonspecif ic. An infected effusion cannot be excluded, to be correlated with the results of the aspirated join t fluid. Inflammatory etiologies may also have this appearance. 2. No evidence for osteomyelitis or abscess formation. RPTAT: HH .Krish Doshi MD, MD Date Time Electronically viewed and signed by .Krish Doshi MD, MD on 03/12/2017 17:34 .d/
[2017-03-12 18:42] VITALS: BP 122/68; PULSE 75
[2017-03-12 20:00] VITALS: BP 131/70; RESP 19
[2017-03-13] VITALS (16 sets, daily range): BP systolic 109–142; BP diastolic 61–75; PULSE 62–70; RESP 12–25
[2017-03-13] MEDS: PIPER-TAZO 3.375 GM IV (PMX) 100 ML IVPB SCH ×4 (00:03→18:00)
[2017-03-13] MEDS: D5W-0.45 NACL + KCL 20 MEQ 1,000 ML IV SCH ×3 (00:03→14:42)
[2017-03-13] MEDS: morphine 2 MG INJ IV PRN (00:33)
[2017-03-13] MEDS ORDERED: morphine 4 MG/ML VIAL IV STA (02:59)
[2017-03-13] MEDS: VANCOMYCIN 1 GM in NS 250 ML IVPB SCH ×2 (03:56→16:22)
[2017-03-13] MEDS ORDERED: PROPOFOL 200 MG INJ ONE (07:00)
[2017-03-13] MEDS ORDERED: DESFLURANE 15 MIN ONE (07:00)
[2017-03-13] MEDS ORDERED: SEVOFLURANE 15 MIN ONE (07:00)
[2017-03-13] MEDS ORDERED: CEFAZOLIN 1 GM INJ ONE (07:00)
[2017-03-13] MEDS: morphine 4 MG/ML VIAL IV PRN ×3 (07:40→16:22)
[2017-03-13] MEDS: HEPARIN 5,000 UNIT/0.5 ML VIAL SC SCH ×2 (08:16→22:53)
[2017-03-13] MEDS: FOLIC ACID 1 MG TAB PO SCH (08:16)
[2017-03-13 08:17] LABS: BASOPHILS % 0.5 % (0.0-2.0); EOSINOPHILS # 0.2 10^3/ul (0.0-0.5); EOSINOPHILS % 2.8 % (0.0-7.0); HEMATOCRIT 33.9 % (37.0-47.0); HEMOGLOBIN 11.4 g/dl (12.0-16.0); LYMPHOCYTES # 1.5 10^3/ul (0.8-2.9); LYMPHOCYTES % 17.3 % (15.0-51.0); MEAN CORPUSCULAR HEMOGLOBIN 31.6 pg (29.0-33.0); MEAN CORPUSCULAR HGB CONC 33.6 g/dl (32.0-37.0); MEAN CORPUSCULAR VOLUME 93.9 fl (82.0-101.0); MEAN PLATELET VOLUME 10.3 fl (7.4-10.4); MONOCYTES % 12.1 % (0.0-11.0); NEUTROPHIL # 5.7 10^3/ul (1.6-7.5); NEUTROPHILS % 67.1 % (39.0-77.0); PLATELET COUNT 250 10^3/UL (140-415); RED BLOOD COUNT 3.61 10^6/ul (4.20-5.40); RED CELL DISTRIBUTION WIDTH 12.9 % (11.5-14.5); WHITE BLOOD COUNT 8.5 10^3/ul (4.8-10.8)
[2017-03-13 08:45] LABS: CALCIUM 8.3 mg/dl (8.4-10.2); CREATININE 0.6 mg/dl (0.44-1.00); POTASSIUM 3.7 mmol/L (3.5-5.1)
[2017-03-13] MEDS ORDERED: BACITRACIN 50000 UNITS INJ IRR ONE (12:05)
--- NOTE | 2017-03-13 15:17 | HPN ---
Date/Time of Note Date/Time of Note DATE: 03/13/17 TIME: 15:17 Interval H&P Admission Note Pt. seen H&P reviewed: No system changes KARL SINGH MD Mar 13, 2017 15:17
--- NOTE | 2017-03-13 17:31 | PN ---
Date/Time of Note Date/Time of Note DATE: 03/13/17 TIME: 17:27 Assessment/Plan VTE Prophylaxis VTE Prophylaxis Intervention: SCD's Lines/Catheters IV Catheter Type (from Nrsg): Peripheral IV Urinary Cath still in place: No Assessment/Plan Assessment/Plan 46 yo F with pmhx RA presented with L hip pain, found to have joint effusion concerning for septic joint. Also c/o 1 day of chest pain #hip pain, possible hip infection -aspiration today by ortho -cont broad spectrum abx pending aspirate results, ID following #chest pain: anxiety v other tele, TTE, troponins. TFTs nl Subjective 24 Hr Interval Summary Free Text/Dictation Hip unchanged. Did not mention to me this AM but told nurse later she'd been having L sided chest pressure intermittently all morning. States she has been evaluated for this previously told it was non cardiac. Also reports occasional palpitations Exam/Review of Systems Vital Signs Vitals Vital Signs Date Time Temp Pulse Resp B/P Pulse Ox O2 Delivery O2 Flow Rate FiO2 03/13/17 15:57 98.8 64 18 120/70 96 Room Air Intake and Output 03/12/17 03/12/17 03/13/17 15:00 23:00 07:00 Intake Total 200 ml 2050 ml 1530 ml Balance 200 ml 2050 ml 1530 ml Exam anxious no mrg, chest discomfort not reproducible with palpation of costochondral joints lungs clear abd soft no rashes Results Result Diagram: 03/13/17 0745 03/13/17 0745 Results 24 hrs Laboratory Tests Test 03/13/17 07:45 03/13/17 14:52 White Blood Count 8.5 # Red Blood Count 3.61 L Hemoglobin 11.4 L Hematocrit 33.9 L Mean Corpuscular Volume 93.9 Mean Corpuscular Hemoglobin 31.6 Mean Corpuscular Hemoglobin Concent 33.6 Red Cell Distribution Width 12.9 Platelet Count 250 Mean Platelet Volume 10.3 Neutrophils % 67.1 Lymphocytes % 17.3 Monocytes % 12.1 H Eosinophils % 2.8 Basophils % 0.5 Nucleated Red Blood Cells % 0.0 Neutrophils # 5.7 Lymphocytes # 1.5 Monocytes # 1.0 H Eosinophils # 0.2 Basophils # 0.0 Nucleated Red Blood Cells # 0.0 Sodium Level 136 Potassium Level 3.7 Chloride Level 106 Carbon Dioxide Level 24 Anion Gap 10 Blood Urea Nitrogen 7 Creatinine 0.60 Glucose Level 107 Calcium Level 8.3 L Troponin I < 0.012 Vancomycin Level Trough 5.9 L Medications Medications Current Medications Ondansetron HCl (Zofran Inj) 4 mg Q6H PRN IV NAUSEA AND/OR VOMITING; Start at 19:00 Acetaminophen (Tylenol Tab) 650 mg Q6H PRN PO PAIN LEVEL 1-3 OR FEVER Last administered on 03/12/17 20:42; Admin Dose 650 MG; Start 03/11/17 at 19:00 Acetaminophen/ Hydrocodone Bitart ([place] (5/325)) 1 tab Q6H PRN PO MODERATE PAIN LEVEL 4-6 Last administered on 03/12/17 18:47; Admin Dose 1 TAB; Start at 19:00 Docusate Sodium (Colace) 100 mg Q12H PRN PO CONSTIPATION; Start 03/11/17 at 19: 00 Magnesium Hydroxide (Milk Of Mag) 30 ml DAILY PRN PO CONSTIPATION; Start at 19:00 Sodium Biphosphate/ Sodium Phosphate (Fleet Enema) 133 ml DAILY PRN [place] CONSTIPATION; Start 03/11/17 at 19:00 Heparin Sodium (Porcine) (Heparin (5000 Units/0.5 ml)) 5,000 unit Q12 SC Last administered on 03/12/17 21:28; Admin Dose 5,000 UNIT; Start 03/11/17 at 21:00 Lorazepam 0.5 mg 0.5 mg Q6H PRN IV ANXIETY Last administered on 03/11/17 20:47 ; Admin Dose 0.5 MG; Start 03/11/17 at 19:00 Piperacillin Sod/ Tazobactam Sod (Zosyn 3.375gm/ 100 ml (Pmx)) 100 ml @ 200 mls /hr Q6 IVPB Last administered on 03/13/17 12:01; Admin Dose 200 MLS/HR; Start 03/12/17 at 00:00 Vancomycin HCl (Vanco Iv Per Pharmacy) VANCOMYCIN PER PHARMACY NOTE XX ; Start 03/11/17 at 19:00 Hydralazine HCl (Apresoline) 10 mg Q6H PRN IV ELEVATED BLOOD PRESSURE; Start at 19:00 Nitroglycerin (Nitroglycerin (Sl Tab) 0.4 Mg) 1 tab Q5M PRN SL ANGINA; Start at 19:00 Folic Acid 1 mg 1 mg DAILY PO Last administered on 03/12/17 08:31; Admin Dose 1 MG; Start 03/12/17 at 09:00 Vancomycin HCl 250 ml @ 125 mls/hr Q12H IVPB Last administered on 03/13/17 16 :22; Admin Dose 125 MLS/HR; Start 03/12/17 at 04:00; Stop 03/13/17 at 18:00 Potassium Chloride/Dextrose/ Sod Cl (D5-1/2ns + KCl 20 Meq) 1,000 ml @ 100 mls/ hr Q10H IV Last administered on 03/13/17 14:42; Admin Dose 100 MLS/HR; Start 03/13/17 at 00:00 Morphine Sulfate 4 mg 4 mg Q4H PRN IV PAIN Last administered on 03/13/17 16:22 ; Admin Dose 4 MG; Start 03/13/17 at 03:00 Vancomycin HCl (Vancocin) 250 ml @ 125 mls/hr Q8H IVPB ; Start 03/14/17 at 00: 00 VANNA TOWNSEND MD Mar 13, 2017 17:31
--- NOTE | 2017-03-13 18:25 | PN ---
DATE: 03/13/2017 SUBJECTIVE DATA: No acute changes. The patient spiked a fever of 100.9 yesterday, currently afebrile, awake, and denies pain. LABORATORY AND DIAGNOSTIC DATA: WBC today 8.5, no shift, no bands. BUN 7, creatinine 0.60. MICROBIOLOGY: Blood culture, urine culture negative. Synovial fluid culture negative. DIAGNOSTICS: MRI of the hip revealed large left hip joint effusion, infected effusion cannot be excluded. No evidence for osteomyelitis or abscess formation. ANTIMICROBIALS: Vancomycin and Zosyn. OBJECTIVE DATA: GENERAL: Obese well-developed middle-aged woman, who is alert, in no distress. HEENT: Head atraumatic, normocephalic. Sclerae anicteric. Buccal mucosa pink. NECK: Supple. CHEST: Chest rise symmetrical. Breath sounds clear. HEART: S1, S2. ABDOMEN: Soft, bowel sounds present. EXTREMITIES: Without cyanosis. ASSESSMENT: 1. Left hip pain within evidence of large joint effusion, status post fluid aspiration with cultures preliminary being negative, concern for septic joint. 2. Systemic inflammatory response syndrome with leukocytosis, fevers, and elevated ESR. 3. History of rheumatoid arthritis, on therapy. 4. Anemia. 5. History of breast augmentation surgery and tummy tuck. PLAN: 1. The patient remains stable. 2. She is on appropriate antibiotics pending irrigation of left hip by Dr. Jeornimo. Dictated By: Raul Belle NP /debby/jose /Document#: [id number]
[2017-03-13] MEDS ORDERED: PROPOFOL 20 ML ONE (19:17)
[2017-03-13] MEDS ORDERED: KETOROLAC 30 MG INJ IV PRN (19:30)
[2017-03-13] MEDS ORDERED: EPHEDrine SULFATE 50 MG/5 ML SYG IV PRN (19:30)
[2017-03-13] MEDS ORDERED: ONDANSETRON 4 MG INJ IV PRN (19:30)
[2017-03-13] MEDS ORDERED: OXYCODONE/ACETAMINOPHEN (5/325) TAB PO PRN ×2 (19:30)
[2017-03-13] MEDS ORDERED: MEPERIDINE 25 MG INJ IV PRN (19:30)
[2017-03-13] MEDS ORDERED: LABETALOL HCL 20MG INJ IV PRN (19:30)
[2017-03-13] MEDS ORDERED: hydrALAzine 20 MG INJ IV PRN (19:30)
[2017-03-13] MEDS ORDERED: HYDROmorphONE (0.2 MG/ML) 10ML SYG IV PRN ×3 (19:30)
[2017-03-13] MEDS ORDERED: FENTAnyl 50 MCG/ML VIAL IV PRN ×3 (19:30)
[2017-03-13] MEDS ORDERED: DIPHENHYDRAMINE 50 MG INJ IV PRN (19:30)
[2017-03-13] MEDS ORDERED: LIDOCAINE 2% (SDV) 5 ML INJ ONE (19:53)
[2017-03-13] MEDS ORDERED: DEXAMETHASONE 4 MG/ML 1 ML INJ ONE (19:53)
[2017-03-13] MEDS ORDERED: ROCURONIUM 50 MG INJ ONE (19:53)
[2017-03-13] MEDS ORDERED: ONDANSETRON 4 MG INJ ONE (19:54)
[2017-03-13] MEDS ORDERED: GLYCOPYRROLATE 0.4 MG INJ ONE (20:18)
[2017-03-13] MEDS ORDERED: NEOSTIGMINE 3 MG/3 ML SYRINGE ONE (20:18)
--- NOTE | 2017-03-13 20:28 | SIPON ---
Date/Time of Note Date/Time of Note DATE: 03/13/17 TIME: 20:27 Operative Report Preoperative Diagnosis Left hip septic arthritis Postoperative Diagnosis same Operation/Procedure Performed Left hip incision and drainage Surgeon Israel Singh MD general office assistant: JOSE DC PA-C Anesthesia Type: general Estimated Blood Loss: minimal Transfusion Required: no Specimens Cultures left hip Grafts/Implants: none Complications: no KARL SINGH MD Mar 13, 2017 20:28
[2017-03-13] MEDS ORDERED: HYDROmorphONE 0.2 MG/ML PCA IV PRN (20:30)
[2017-03-13] MEDS ORDERED: NALOXONE (0.4 MG/ML) INJ IV PRN (20:30)
[2017-03-13] MEDS ORDERED: oxyCODONE 5 MG TAB PO PRN ×3 (20:30)
[2017-03-13] MEDS ORDERED: MEPERIDINE 10 MG/ML 30 ML PCA IV PRN (20:30)
[2017-03-13] MEDS: ONDANSETRON 4 MG INJ IV SCH (22:48)
[2017-03-13] MEDS: ACETAMINOPHEN 1000MG/100ML IV 100 ML IVPB SCH (22:48)
[2017-03-14] VITALS (16 sets, daily range): BP systolic 98–132; BP diastolic 55–72; PULSE 41–93; RESP 15–19
[2017-03-14] MEDS ORDERED: VANCOMYCIN 1 GM in NS 250 ML IVPB SCH
[2017-03-14] MEDS: D5W-0.45 NACL + KCL 20 MEQ 1,000 ML IV SCH ×2 (00:15→05:25)
[2017-03-14] MEDS: PIPER-TAZO 3.375 GM IV (PMX) 100 ML IVPB SCH ×5 (00:15→23:20)
[2017-03-14] MEDS: ONDANSETRON 4 MG INJ IV SCH ×3 (03:13→14:30)
[2017-03-14] MEDS: ACETAMINOPHEN 1000MG/100ML IV 100 ML IVPB SCH ×3 (05:25→20:11)
--- NOTE | 2017-03-14 06:32 | PN ---
Date/Time of Note Date/Time of Note DATE: 03/14/17 TIME: 06:30 Assessment/Plan Lines/Catheters IV Catheter Type (from Nrsg): Mid Line Strong in Place (from Nrsg): No Assessment/Plan Assessment/Plan S/p Left hip I&D Continue IV Abx. Follow up Cultures/Sensitivity. WBAT. PT. Subjective 24 Hr Interval Summary Pain controlled. No fevers, or chills. Exam/Review of Systems Vital Signs Vitals Vital Signs Date Time Temp Pulse Resp B/P Pulse Ox O2 Delivery O2 Flow Rate FiO2 03/14/17 04:04 52 03/14/17 04:00 98.7 15 98/59 97 03/13/17 21:08 Room Air Intake and Output 03/13/17 03/13/17 03/14/17 15:00 23:00 07:00 Intake Total 600 ml 700 ml Output Total 1120 ml Balance 600 ml -420 ml Exam Free Text/Dictation Left Hip: dressing C/D/I. 5/5 Q/Gs/Ta. Palpable pulses. Results Result Diagram: 03/13/17 0745 03/13/17 0745 KARL SINGH MD Mar 14, 2017 06:32
[2017-03-14 07:31] LABS: BASOPHILS % 0.1 % (0.0-2.0); HEMATOCRIT 35.6 % (37.0-47.0); LYMPHOCYTES # 0.8 10^3/ul (0.8-2.9); LYMPHOCYTES % 9.1 % (15.0-51.0); MEAN CORPUSCULAR HGB CONC 33.7 g/dl (32.0-37.0); MEAN CORPUSCULAR VOLUME 94.9 fl (82.0-101.0); MEAN PLATELET VOLUME 10.5 fl (7.4-10.4); MONOCYTE # 0.4 10^3/ul (0.3-0.9); NEUTROPHIL # 7.5 10^3/ul (1.6-7.5); NEUTROPHILS % 86.2 % (39.0-77.0); PLATELET COUNT 307 10^3/UL (140-415); RED BLOOD COUNT 3.75 10^6/ul (4.20-5.40); RED CELL DISTRIBUTION WIDTH 12.6 % (11.5-14.5); WHITE BLOOD COUNT 8.7 10^3/ul (4.8-10.8)
[2017-03-14 08:09] LABS: CALCIUM 8.8 mg/dl (8.4-10.2); CREATININE 0.6 mg/dl (0.44-1.00); POTASSIUM 4.5 mmol/L (3.5-5.1)
--- NOTE | 2017-03-14 09:09 | OPR ---
DATE OF OPERATION: 03/13/2017 PREOPERATIVE DIAGNOSIS: Left hip septic arthritis. POSTOPERATIVE DIAGNOSIS: Left hip septic arthritis. OPERATION PERFORMED: Left hip incision and drainage. SURGEON: MD Kandace. CROP CONSULTANT: Paramjit Ahuja PA-C. ANESTHESIOLOGIST: Dr. Perkins. ANESTHESIA: General. ESTIMATED BLOOD LOSS: Minimal. COMPLICATIONS: None. SPECIMEN: Cultures, left hip joint. IMPLANTS: None. DISPOSITION: PACU in stable condition. INDICATION FOR PROCEDURE: This is a 46-year-old female with a history of rheumatoid arthritis on methotrexate, who was found to have left septic hip arthritis. Risks, benefits, alternatives to surgical intervention were discussed with the patient and her and informed consent was obtained. OPERATIVE PROCEDURE: Patient was met in the preop suite. The correct operative site was confirmed and marked. She was then brought into the operating room. After induction of general anesthesia, she was placed in the supine position on the Hugo table. The left lower extremity was prepped and draped in the usual sterile fashion. Before starting, a time-out was taken to identify the correct operative site. At this point, a 4 cm incision was made approximately 2 cm lateral and 1 cm distal to the ASIS. The incision was then carried down to the fascia. The fascia was then incised and the interval was then bluntly developed. The TFL was then retracted laterally. The lateral circumflex vessels were identified and ligated. The anterior hip capsule was then identified and appropriate retractors were placed. An arthrotomy was then completed and immediately a large amount of purulent fluid was noted and cultures were taken at this point. The wound was then thoroughly irrigated with 6 L of sterile saline. No purulent fluid was further identified. The capsule was then closed using #1 Vicryl interrupted in figure-of- eight fashion, followed by closure of the fascia with #1 Vicryl. The subcutaneous tissue was closed using 2-0 Vicryl and the skin approximated with barrington. A sterile dressing was applied. There were no complications. Patient was awakened, taken to postoperative care unit in stable condition. POSTOPERATIVE CARE: Patient will be weightbearing as tolerated. She will continue on IV antibiotics per recommendations of Infectious Disease. Cultures and sensitivities, we will follow. She will have SCDs while in bed. She will work with Physical Therapy. Upon discharge, she can follow up in my office within 2 weeks postoperatively. Dictated By: Abdoul Jeronimo MD /debby/bonita /Document#: [id number]
[2017-03-14] MEDS: FOLIC ACID 1 MG TAB PO SCH (09:18)
[2017-03-14] MEDS: VANCOMYCIN 1 GM (PMX) 250 ML IVPB SCH ×2 (09:19→18:34)
[2017-03-14] MEDS: HEPARIN 5,000 UNIT/0.5 ML VIAL SC SCH ×2 (09:26→20:21)
--- NOTE | 2017-03-14 12:44 | RADRPT ---
Echocardiogram Report Patient Name: BORA MAXWELL Gender: Female Date: 1970 Study Date: 14-Mar-2017 [employer] Teacher: Gabriela Bland [facility] Location: 504 Ref. Physician: VANNA TOWNSEND Quality: Good Procedures: Transthoracic echocardiogram with complete 2D, M-Mode, and doppler examination. Indications: Palpitations. 2D/M Mode Doppler Measurement Value Normal Ranges Measurement Value Normal Ranges LVIDd 2D 4.5 3.5 - 5.6 cm AV Peak Ramy 1.6 m/sec LVIDs 2D 2.7 2.1 - 4.1 cm AV Peak PG 10.7 mmHg LVPWd 2D 1.1 0.6 - 1.1 cm LVOT Peak Ramy 1.3 m/sec IVSd 2D 1.2 0.6 - 1.1 cm LVOT Peak PG 6.3 mmHg AoR Diam 2D 2.6 2.0 - 3.7 cm MV E Peak Ramy 1.1 m/sec EDV 2D 92.4 cm3 MV A Peak Ramy 0.8 m/sec ESV 2D 19.7 cm3 MV E/A 1.4 LA Dimen 2D 3.1 2.3 - 4.0 cm MV Decel Time 200 msec MV Decel [place] 6 MV E/A 1.4 TR Peak Ramy 2.4 m/sec TR Peak PG 23.2 mmHg RVSP 33.0 mmHg Findings Left Ventricle: Normal left ventricular systolic function. Normal left ventricular cavity size. Mild concentric left ventricular hypertrophy. Ejection fraction is visually estimated at 60 %. Tissue Doppler/Mitral Doppler indices are within normal limits. Right Ventricle: Normal right ventricular size. Normal right ventricular systolic function. Left Atrium: The left atrium is normal in size. Right Atrium: The right atrium is normal in size. Mitral Valve: Mitral valve leaflets appear mildly thickened. Mild mitral annular calcification. Trace mitral regurgitation. Aortic Valve: No hemodynamically significant aortic stenosis by doppler. Aortic cusps appear mildly calcified. No aortic regurgitation. Tricuspid Valve: Normal appearance of the tricuspid valve. Estimated peak PA systolic pressure 33 mmHg. There is trace tricuspid regurgitation. Pulmonic Valve: Pulmonic valve not well visualized. Pericardium: Normal pericardium with no significant pericardial effusion. Aorta: Normal aortic root. IVC: Normal size and normal respiratory collapse consistent with normal right atrial pressure. Conclusions 1.Normal left ventricular systolic function. Normal left ventricular cavity size. Mild concentric left ventricular hypertrophy. Ejection fraction is visually estimated at 60 %. Tissue Doppler/Mitral Doppler indices are within normal limits. 2.No hemodynamically significant aortic stenosis by doppler. Aortic cusps appear mildly calcified. No aortic regurgitation. 3.Mitral valve leaflets appear mildly thickened. Mild mitral annular calcification. Trace mitral regurgitation. 4.Normal appearance of the tricuspid valve. Estimated peak PA systolic pressure 33 mmHg. There is trace tricuspid regurgitation. Electronically Signed By: Jose Alejandro Frye 14-Mar-2017 12:43:46 -0700 Patient Name: BORA MAXWELL Study Date: 14-Mar-2017 [id number]
--- NOTE | 2017-03-14 13:33 | PN ---
Date/Time of Note Date/Time of Note DATE: 03/14/17 TIME: 13:31 Assessment/Plan VTE Prophylaxis VTE Prophylaxis Intervention: SCD's Lines/Catheters IV Catheter Type (from Nrs): Mid Line Urinary Cath still in place: No Assessment/Plan Assessment/Plan 46 yo F with pmhx RA presented with L hip pain, found to have joint effusion concerning for septic joint sp I&D .. Had chest pain . which has resolved #septic arthritis of L hip, likely result of pt's RA -sp I&D 03.13. f/u ortho 2 weeks as outpatient -cont broad spectrum abx pending culture results, ID following #chest pain: anxiety v other. Ruled out for ACS with serial troponins will likely dc tele once TTE results are in Subjective 24 Hr Interval Summary Free Text/Dictation Pt denies any additional chest pain. Underwent I&D L hip last night Exam/Review of Systems Vital Signs Vitals Vital Signs Date Time Temp Pulse Resp B/P Pulse Ox O2 Delivery O2 Flow Rate FiO2 03/14/17 12:00 55 03/14/17 11:06 97.8 18 109/63 98 03/13/17 21:08 Room Air Intake and Output 03/13/17 03/13/17 03/14/17 15:00 23:00 07:00 Intake Total 600 ml 700 ml 1200 ml Output Total 1120 ml 1300 ml Balance 600 ml -420 ml -100 ml Exam nad no mrg lungs clear abd soft no rashes hip cultures pending Results Result Diagram: 03/14/17 0646 03/14/17 0646 Results 24 hrs Laboratory Tests Test 03/13/17 14:52 03/13/17 20:50 03/14/17 06:46 Troponin I < 0.012 < 0.012 < 0.012 Vancomycin Level Trough 5.9 L White Blood Count 8.7 Red Blood Count 3.75 L Hemoglobin 12.0 Hematocrit 35.6 L Mean Corpuscular Volume 94.9 Mean Corpuscular Hemoglobin 32.0 Mean Corpuscular Hemoglobin Concent 33.7 Red Cell Distribution Width 12.6 Platelet Count 307 # Mean Platelet Volume 10.5 H Neutrophils % 86.2 H Lymphocytes % 9.1 L Monocytes % 4.0 Eosinophils % 0.0 Basophils % 0.1 Nucleated Red Blood Cells % 0.0 Neutrophils # 7.5 Lymphocytes # 0.8 Monocytes # 0.4 Eosinophils # 0.0 Basophils # 0.0 Nucleated Red Blood Cells # 0.0 Sodium Level 139 Potassium Level 4.5 Chloride Level 105 Carbon Dioxide Level 24 Anion Gap 15 Blood Urea Nitrogen 10 Creatinine 0.60 Glucose Level 151 Calcium Level 8.8 Medications Medications Current Medications Acetaminophen (Tylenol Tab) 650 mg Q6H PRN PO PAIN LEVEL 1-3 OR FEVER Last administered on 03/12/17 20:42; Admin Dose 650 MG; Start 03/11/17 at 19:00 Acetaminophen/ Hydrocodone Bitart ([place] (5/325)) 1 tab Q6H PRN PO MODERATE PAIN LEVEL 4-6 Last administered on 03/12/17 18:47; Admin Dose 1 TAB; Start at 19:00 Docusate Sodium (Colace) 100 mg Q12H PRN PO CONSTIPATION; Start 03/11/17 at 19: 00 Magnesium Hydroxide (Milk Of Mag) 30 ml DAILY PRN PO CONSTIPATION; Start at 19:00 Sodium Biphosphate/ Sodium Phosphate (Fleet Enema) 133 ml DAILY PRN [place] CONSTIPATION; Start 03/11/17 at 19:00 Heparin Sodium (Porcine) (Heparin (5000 Units/0.5 ml)) 5,000 unit Q12 SC Last administered on 03/14/17 09:26; Admin Dose 5,000 UNIT; Start 03/11/17 at 21:00 Lorazepam 0.5 mg 0.5 mg Q6H PRN IV ANXIETY Last administered on 03/11/17 20:47 ; Admin Dose 0.5 MG; Start 03/11/17 at 19:00 Piperacillin Sod/ Tazobactam Sod (Zosyn 3.375gm/ 100 ml (Pmx)) 100 ml @ 200 mls /hr Q6 IVPB Last administered on 03/14/17 12:42; Admin Dose 200 MLS/HR; Start 03/12/17 at 00:00 Vancomycin HCl (Vanco Iv Per Pharmacy) VANCOMYCIN PER PHARMACY NOTE XX ; Start 03/11/17 at 19:00 Nitroglycerin (Nitroglycerin (Sl Tab) 0.4 Mg) 1 tab Q5M PRN SL ANGINA; Start at 19:00 Folic Acid (Folic Acid) 1 mg DAILY PO Last administered on 03/14/17 09:18; Admin Dose 1 MG; Start 03/12/17 at 09:00 Hydromorphone HCl (Dilaudid PLAN[place]) Q4PCA PRN IV SEVERE PAIN 8-10 Last administered on 03/13/17 20:59; Admin Dose 6 MG; Start 03/13/17 at 20:30; Stop 03/14/17 at 20:29 Oxycodone HCl (Roxicodone) 20 mg Q3H PRN PO PAIN LEVEL 8-10; Start 03/13/17 at 20:30 Oxycodone HCl (Roxicodone) 10 mg Q3H PRN PO PAIN LEVEL 4-7; Start 03/13/17 at 20:30 Oxycodone HCl 5 mg 5 mg Q3H PRN PO PAIN LEVEL 1-3; Start 03/13/17 at 20:30 Acetaminophen (Ofirmev 1000mg/ 100ml Iv) 100 ml @ 400 mls/hr Q8H IVPB Last administered on 03/14/17 12:16; Admin Dose 400 MLS/HR; Start 03/13/17 at 20:30 ; Stop 03/15/17 at 12:44 Ondansetron HCl (Zofran Inj) 4 mg Q6H IV Last administered on 03/14/17 09:20; Admin Dose 4 MG; Start 03/13/17 at 20:30; Stop 03/14/17 at 14:31 Ondansetron HCl (Zofran Inj) 4 mg Q4H PRN IV NAUSEA AND/OR VOMITING; Start at 20:30 Naloxone HCl 0.2 mg 0.2 mg Q2M PRN IV DECREASED REPIRATORY RATE; Start 03/13/17 at 20:30 Vancomycin HCl (Vancocin) 250 ml @ 125 mls/hr Q8H IVPB Last administered on 09:19; Admin Dose 125 MLS/HR; Start 03/14/17 at 09:00 Miscellaneous Information (*Rx Drug Level Order Reminder*) VANCO TROUGH @ 0, 000 ON... ONCE ONCE XX ; Start 03/15/17 at 00:00; Stop 03/15/17 at 00:01 VANNA TOWNSEND MD Mar 14, 2017 13:33
--- NOTE | 2017-03-14 15:29 | CONS ---
Date/Time of Note Date/Time of Note DATE: 03/14/17 TIME: 15:26 Assessment/Plan Assessment/Plan Chief Complaint/Hosp Course SUBJECTIVE DATA: No acute changes. Awake, looks comfortable, no fevers MICROBIOLOGY: Blood culture, urine culture negative. Synovial fluid culture negative. DIAGNOSTICS: MRI of the hip revealed large left hip joint effusion, infected effusion cannot be excluded. No evidence for osteomyelitis or abscess formation. ANTIMICROBIALS: Vancomycin and Zosyn. OBJECTIVE DATA: GENERAL: Obese well-developed middle-aged woman, who is alert, in no distress. HEENT: Head atraumatic, normocephalic. Sclerae anicteric. Buccal mucosa pink. NECK: Supple. CHEST: Chest rise symmetrical. Breath sounds clear. HEART: S1, S2. ABDOMEN: Soft, bowel sounds present. EXTREMITIES: Without cyanosis. ASSESSMENT: 1. Infected Left hip s/p i&d 2. Systemic inflammatory response syndrome with leukocytosis, fevers, and elevated ESR. 3. History of rheumatoid arthritis, on therapy. 4. Anemia. 5. History of breast augmentation surgery and tummy tuck. PLAN: 1. The patient remains stable. 2. She is on appropriate antibiotics, pending intraoperative cx's, f/u ortho rec-s, will likely require half-way IV abx DW Problems: Consultation Date/Type/Reason Admit Date/Time Mar 11, 2017 at 18:46 Initial Consult Date Type of Consultation: ID Exam/Review of Systems Vital Signs Vitals Vital Signs Date Time Temp Pulse Resp B/P Pulse Ox O2 Delivery O2 Flow Rate FiO2 03/14/17 12:00 55 03/14/17 11:06 97.8 18 109/63 98 03/13/17 21:08 Room Air Intake and Output 03/13/17 03/13/17 03/14/17 15:00 23:00 07:00 Intake Total 600 ml 700 ml 1200 ml Output Total 1120 ml 1300 ml Balance 600 ml -420 ml -100 ml Results Result Diagram: 03/14/17 0646 03/14/17 0646 Results 24 hrs Laboratory Tests Test 03/13/17 20:50 03/14/17 06:46 Troponin I < 0.012 < 0.012 White Blood Count 8.7 Red Blood Count 3.75 L Hemoglobin 12.0 Hematocrit 35.6 L Mean Corpuscular Volume 94.9 Mean Corpuscular Hemoglobin 32.0 Mean Corpuscular Hemoglobin Concent 33.7 Red Cell Distribution Width 12.6 Platelet Count 307 # Mean Platelet Volume 10.5 H Neutrophils % 86.2 H Lymphocytes % 9.1 L Monocytes % 4.0 Eosinophils % 0.0 Basophils % 0.1 Nucleated Red Blood Cells % 0.0 Neutrophils # 7.5 Lymphocytes # 0.8 Monocytes # 0.4 Eosinophils # 0.0 Basophils # 0.0 Nucleated Red Blood Cells # 0.0 Sodium Level 139 Potassium Level 4.5 Chloride Level 105 Carbon Dioxide Level 24 Anion Gap 15 Blood Urea Nitrogen 10 Creatinine 0.60 Glucose Level 151 Calcium Level 8.8 Medications Medications Current Medications Acetaminophen (Tylenol Tab) 650 mg Q6H PRN PO PAIN LEVEL 1-3 OR FEVER Last administered on 03/12/17 20:42; Admin Dose 650 MG; Start 03/11/17 at 19:00 Acetaminophen/ Hydrocodone Bitart ([place] (5/325)) 1 tab Q6H PRN PO MODERATE PAIN LEVEL 4-6 Last administered on 03/12/17 18:47; Admin Dose 1 TAB; Start at 19:00 Docusate Sodium (Colace) 100 mg Q12H PRN PO CONSTIPATION; Start 03/11/17 at 19: 00 Magnesium Hydroxide (Milk Of Mag) 30 ml DAILY PRN PO CONSTIPATION; Start at 19:00 Sodium Biphosphate/ Sodium Phosphate (Fleet Enema) 133 ml DAILY PRN [place] CONSTIPATION; Start 03/11/17 at 19:00 Heparin Sodium (Porcine) 5000 unit 5,000 unit Q12 SC Last administered on 09:26; Admin Dose 5,000 UNIT; Start 03/11/17 at 21:00 Piperacillin Sod/ Tazobactam Sod (Zosyn 3.375gm/ 100 ml (Pmx)) 100 ml @ 200 mls /hr Q6 IVPB Last administered on 03/14/17 12:42; Admin Dose 200 MLS/HR; Start 03/12/17 at 00:00 Vancomycin HCl (Vanco Iv Per Pharmacy) VANCOMYCIN PER PHARMACY NOTE XX ; Start 03/11/17 at 19:00 Nitroglycerin (Nitroglycerin (Sl Tab) 0.4 Mg) 1 tab Q5M PRN SL ANGINA; Start at 19:00 Folic Acid (Folic Acid) 1 mg DAILY PO Last administered on 03/14/17 09:18; Admin Dose 1 MG; Start 03/12/17 at 09:00 Hydromorphone HCl (Dilaudid DIAZO TECHNICIAN) Q4PCA PRN IV SEVERE PAIN 8-10 Last administered on 03/13/17 20:59; Admin Dose 6 MG; Start 03/13/17 at 20:30; Stop 03/14/17 at 20:29 Oxycodone HCl (Roxicodone) 20 mg Q3H PRN PO PAIN LEVEL 8-10; Start 03/13/17 at 20:30 Oxycodone HCl (Roxicodone) 10 mg Q3H PRN PO PAIN LEVEL 4-7; Start 03/13/17 at 20:30 Oxycodone HCl 5 mg 5 mg Q3H PRN PO PAIN LEVEL 1-3; Start 03/13/17 at 20:30 Acetaminophen (Ofirmev 1000mg/ 100ml Iv) 100 ml @ 400 mls/hr Q8H IVPB Last administered on 03/14/17 12:16; Admin Dose 400 MLS/HR; Start 03/13/17 at 20:30 ; Stop 03/15/17 at 12:44 Ondansetron HCl (Zofran Inj) 4 mg Q4H PRN IV NAUSEA AND/OR VOMITING; Start at 20:30 Naloxone HCl 0.2 mg 0.2 mg Q2M PRN IV DECREASED REPIRATORY RATE; Start 03/13/17 at 20:30 Vancomycin HCl (Vancocin) 250 ml @ 125 mls/hr Q8H IVPB Last administered on 09:19; Admin Dose 125 MLS/HR; Start 03/14/17 at 09:00 Miscellaneous Information (*Rx Drug Level Order Reminder*) VANCO TROUGH @ 0, 000 ON... ONCE ONCE XX ; Start 03/15/17 at 00:00; Stop 03/15/17 at 00:01 STEWART MARTINEZ NP Mar 14, 2017 15:29
[2017-03-14] MEDS ORDERED: ONDANSETRON 4 MG INJ IV PRN (20:30)
[2017-03-15] VITALS (11 sets, daily range): BP systolic 106–138; BP diastolic 58–80; PULSE 44–56; RESP 18–20
--- NOTE | 2017-03-15 00:13 | RADRPT ---
Vent Rate: 61 bpm RR Interval: 0 msec OK Interval: 142 msec QRS Duration: 92 msec QT Interval: 418 msec QTC Interval: 420 msec P-R-T [place]: 36 - 41 - 73 degrees Normal sinus rhythm Normal ECG Electronically Signed By: Jayson Mendoza [id number]
[2017-03-15] MEDS: VANCOMYCIN 1 GM (PMX) 250 ML IVPB SCH ×3 (02:31→16:46)
[2017-03-15] MEDS: ACETAMINOPHEN 1000MG/100ML IV 100 ML IVPB SCH ×2 (05:12→12:04)
[2017-03-15] MEDS: PIPER-TAZO 3.375 GM IV (PMX) 100 ML IVPB SCH ×2 (06:05→12:31)
[2017-03-15] MEDS: FOLIC ACID 1 MG TAB PO SCH (09:32)
[2017-03-15] MEDS: HEPARIN 5,000 UNIT/0.5 ML VIAL SC SCH ×2 (09:46→20:14)
[2017-03-15 11:00] LABS: BASOPHILS % 0.5 % (0.0-2.0); EOSINOPHILS # 0.2 10^3/ul (0.0-0.5); HEMATOCRIT 35.1 % (37.0-47.0); HEMOGLOBIN 11.5 g/dl (12.0-16.0); LYMPHOCYTES # 2.5 10^3/ul (0.8-2.9); LYMPHOCYTES % 31.5 % (15.0-51.0); MEAN CORPUSCULAR HEMOGLOBIN 31.8 pg (29.0-33.0); MEAN CORPUSCULAR HGB CONC 32.8 g/dl (32.0-37.0); MEAN PLATELET VOLUME 10.2 fl (7.4-10.4); MONOCYTE # 0.6 10^3/ul (0.3-0.9); MONOCYTES % 7.2 % (0.0-11.0); NEUTROPHIL # 4.6 10^3/ul (1.6-7.5); NEUTROPHILS % 57.2 % (39.0-77.0); PLATELET COUNT 342 10^3/UL (140-415); RED BLOOD COUNT 3.62 10^6/ul (4.20-5.40); RED CELL DISTRIBUTION WIDTH 12.9 % (11.5-14.5)
[2017-03-15 11:19] LABS: CALCIUM 8.7 mg/dl (8.4-10.2); CREATININE 0.73 mg/dl (0.44-1.00); POTASSIUM 3.4 mmol/L (3.5-5.1)
--- NOTE | 2017-03-15 12:40 | CONS ---
Date/Time of Note Date/Time of Note DATE: 03/15/17 TIME: 12:39 Assessment/Plan Assessment/Plan Chief Complaint/Hosp Course SUBJECTIVE DATA: Alert sitting up in a chair feels good looks comfortable denies temperature 98.4 pulse 58 respirations 19 blood pressure 108/60 saturation 98 on room air WBC 8 H&H 11.5 and 35.1 platelets 342 no shift BUN 13 creatinine 0.73 Microbiology: All cultures are negative DIAGNOSTICS: MRI of the hip revealed large left hip joint effusion, infected effusion cannot be excluded. No evidence for osteomyelitis or abscess formation. ANTIMICROBIALS: Vancomycin and Zosyn. OBJECTIVE DATA: GENERAL: Obese well-developed middle-aged woman, who is alert, in no distress. HEENT: Head atraumatic, normocephalic. Sclerae anicteric. Buccal mucosa pink. NECK: Supple. CHEST: Chest rise symmetrical. Breath sounds clear. HEART: S1, S2. ABDOMEN: Soft, bowel sounds present. EXTREMITIES: Without cyanosis. ASSESSMENT: 1. Infected Left hip s/p i&d 2. Systemic inflammatory response syndrome with leukocytosis, fevers, and elevated ESR. 3. History of rheumatoid arthritis, on therapy. 4. Anemia. 5. History of breast augmentation surgery and tummy tuck. PLAN: The patient remains stable, continue vancomycin, change Zosyn to Rocephin , await for ortho recommendations. Recommend discharge home on 4-6 weeks IV antibiotics DW staff Problems: Consultation Date/Type/Reason Admit Date/Time Mar 11, 2017 at 18:46 Type of Consultation: ID Exam/Review of Systems Vital Signs Vitals Vital Signs Date Time Temp Pulse Resp B/P Pulse Ox O2 Delivery O2 Flow Rate FiO2 03/15/17 12:22 56 03/15/17 11:46 98.4 19 108/60 98 03/13/17 21:08 Room Air Intake and Output 03/14/17 03/14/17 03/15/17 15:00 23:00 07:00 Intake Total 900 ml 1150 ml Balance 900 ml 1150 ml Results Result Diagram: 03/15/17 1040 03/15/17 1040 Results 24 hrs Laboratory Tests Test 03/15/17 00:30 03/15/17 10:40 Vancomycin Level Trough 13.0 White Blood Count 8.0 Red Blood Count 3.62 L Hemoglobin 11.5 L Hematocrit 35.1 L Mean Corpuscular Volume 97.0 Mean Corpuscular Hemoglobin 31.8 Mean Corpuscular Hemoglobin Concent 32.8 Red Cell Distribution Width 12.9 Platelet Count 342 Mean Platelet Volume 10.2 Neutrophils % 57.2 Lymphocytes % 31.5 Monocytes % 7.2 Eosinophils % 3.0 Basophils % 0.5 Nucleated Red Blood Cells % 0.0 Neutrophils # 4.6 Lymphocytes # 2.5 Monocytes # 0.6 Eosinophils # 0.2 Basophils # 0.0 Nucleated Red Blood Cells # 0.0 Sodium Level 143 Potassium Level 3.4 L Chloride Level 108 Carbon Dioxide Level 29 Anion Gap 9 # Blood Urea Nitrogen 13 Creatinine 0.73 Glucose Level 119 Calcium Level 8.7 Medications Medications Current Medications Acetaminophen (Tylenol Tab) 650 mg Q6H PRN PO PAIN LEVEL 1-3 OR FEVER Last administered on 03/12/17 20:42; Admin Dose 650 MG; Start 03/11/17 at 19:00 Acetaminophen/ Hydrocodone Bitart ([place] (5/325)) 1 tab Q6H PRN PO MODERATE PAIN LEVEL 4-6 Last administered on 03/12/17 18:47; Admin Dose 1 TAB; Start at 19:00 Docusate Sodium (Colace) 100 mg Q12H PRN PO CONSTIPATION; Start 03/11/17 at 19: 00 Magnesium Hydroxide (Milk Of Mag) 30 ml DAILY PRN PO CONSTIPATION; Start at 19:00 Sodium Biphosphate/ Sodium Phosphate (Fleet Enema) 133 ml DAILY PRN [place] CONSTIPATION; Start 03/11/17 at 19:00 Heparin Sodium (Porcine) 5000 unit 5,000 unit Q12 SC Last administered on 09:46; Admin Dose 5,000 UNIT; Start 03/11/17 at 21:00 Piperacillin Sod/ Tazobactam Sod (Zosyn 3.375gm/ 100 ml (Pmx)) 100 ml @ 200 mls /hr Q6 IVPB Last administered on 03/15/17 12:31; Admin Dose 200 MLS/HR; Start 03/12/17 at 00:00 Vancomycin HCl (Vanco Iv Per Pharmacy) VANCOMYCIN PER PHARMACY NOTE XX ; Start 03/11/17 at 19:00 Nitroglycerin (Nitroglycerin (Sl Tab) 0.4 Mg) 1 tab Q5M PRN SL ANGINA; Start at 19:00 Folic Acid (Folic Acid) 1 mg DAILY PO Last administered on 03/15/17 09:32; Admin Dose 1 MG; Start 03/12/17 at 09:00 Oxycodone HCl (Roxicodone) 20 mg Q3H PRN PO PAIN LEVEL 8-10; Start 03/13/17 at 20:30 Oxycodone HCl (Roxicodone) 10 mg Q3H PRN PO PAIN LEVEL 4-7; Start 03/13/17 at 20:30 Oxycodone HCl 5 mg 5 mg Q3H PRN PO PAIN LEVEL 1-3; Start 03/13/17 at 20:30 Acetaminophen (Ofirmev 1000mg/ 100ml Iv) 100 ml @ 400 mls/hr Q8H IVPB Last administered on 03/15/17 12:04; Admin Dose 400 MLS/HR; Start 03/13/17 at 20:30 ; Stop 03/15/17 at 12:44 Ondansetron HCl (Zofran Inj) 4 mg Q4H PRN IV NAUSEA AND/OR VOMITING; Start at 20:30 Naloxone HCl 0.2 mg 0.2 mg Q2M PRN IV DECREASED REPIRATORY RATE; Start 03/13/17 at 20:30 Vancomycin HCl (Vancocin) 250 ml @ 125 mls/hr Q8H IVPB Last administered on 09:32; Admin Dose 125 MLS/HR; Start 03/14/17 at 09:00 STEWART MARTINEZ NP Mar 15, 2017 12:40
--- NOTE | 2017-03-15 13:49 | PN ---
Date/Time of Note Date/Time of Note DATE: 03/15/17 TIME: 13:44 Assessment/Plan VTE Prophylaxis VTE Prophylaxis Intervention: SCD's Lines/Catheters IV Catheter Type (from Nrs): Saline Lock Urinary Cath still in place: No Assessment/Plan Assessment/Plan 46 yo F with pmhx RA presented with L hip pain, found to have joint effusion concerning for septic joint sp I&D .. Had chest pain 03.13 which has resolved #septic arthritis of L hip, likely result of pt's RA -sp I&D 03.13. f/u ortho 2 weeks as outpatient -cont broad spectrum abx pending culture results, ID following. cultures still negative #chest pain: anxiety v other. Ruled out for ACS with serial troponins; TTE negative. HEART score zero. very unlikely cardiac dc tele Exam/Review of Systems Vital Signs Vitals Vital Signs Date Time Temp Pulse Resp B/P Pulse Ox O2 Delivery O2 Flow Rate FiO2 03/15/17 12:22 56 03/15/17 11:46 98.4 19 108/60 98 03/13/17 21:08 Room Air Intake and Output 03/14/17 03/14/17 03/15/17 15:00 23:00 07:00 Intake Total 900 ml 1150 ml Balance 900 ml 1150 ml Results Result Diagram: 03/15/17 1040 03/15/17 1040 Results 24 hrs Laboratory Tests Test 03/15/17 00:30 03/15/17 10:40 Vancomycin Level Trough 13.0 White Blood Count 8.0 Red Blood Count 3.62 L Hemoglobin 11.5 L Hematocrit 35.1 L Mean Corpuscular Volume 97.0 Mean Corpuscular Hemoglobin 31.8 Mean Corpuscular Hemoglobin Concent 32.8 Red Cell Distribution Width 12.9 Platelet Count 342 Mean Platelet Volume 10.2 Neutrophils % 57.2 Lymphocytes % 31.5 Monocytes % 7.2 Eosinophils % 3.0 Basophils % 0.5 Nucleated Red Blood Cells % 0.0 Neutrophils # 4.6 Lymphocytes # 2.5 Monocytes # 0.6 Eosinophils # 0.2 Basophils # 0.0 Nucleated Red Blood Cells # 0.0 Sodium Level 143 Potassium Level 3.4 L Chloride Level 108 Carbon Dioxide Level 29 Anion Gap 9 # Blood Urea Nitrogen 13 Creatinine 0.73 Glucose Level 119 Calcium Level 8.7 Medications Medications Current Medications Acetaminophen (Tylenol Tab) 650 mg Q6H PRN PO PAIN LEVEL 1-3 OR FEVER Last administered on 03/12/17 20:42; Admin Dose 650 MG; Start 03/11/17 at 19:00 Acetaminophen/ Hydrocodone Bitart ([place] (5/325)) 1 tab Q6H PRN PO MODERATE PAIN LEVEL 4-6 Last administered on 03/12/17 18:47; Admin Dose 1 TAB; Start at 19:00 Docusate Sodium (Colace) 100 mg Q12H PRN PO CONSTIPATION; Start 03/11/17 at 19: 00 Magnesium Hydroxide (Milk Of Mag) 30 ml DAILY PRN PO CONSTIPATION; Start at 19:00 Sodium Biphosphate/ Sodium Phosphate (Fleet Enema) 133 ml DAILY PRN [place] CONSTIPATION; Start 03/11/17 at 19:00 Heparin Sodium (Porcine) (Heparin (5000 Units/0.5 ml)) 5,000 unit Q12 SC Last administered on 03/15/17 09:46; Admin Dose 5,000 UNIT; Start 03/11/17 at 21:00 Vancomycin HCl (Vanco Iv Per Pharmacy) VANCOMYCIN PER PHARMACY NOTE XX ; Start 03/11/17 at 19:00 Nitroglycerin (Nitroglycerin (Sl Tab) 0.4 Mg) 1 tab Q5M PRN SL ANGINA; Start at 19:00 Folic Acid (Folic Acid) 1 mg DAILY PO Last administered on 03/15/17 09:32; Admin Dose 1 MG; Start 03/12/17 at 09:00 Oxycodone HCl (Roxicodone) 20 mg Q3H PRN PO PAIN LEVEL 8-10; Start 03/13/17 at 20:30 Oxycodone HCl (Roxicodone) 10 mg Q3H PRN PO PAIN LEVEL 4-7; Start 03/13/17 at 20:30 Oxycodone HCl (Roxicodone) 5 mg Q3H PRN PO PAIN LEVEL 1-3; Start 03/13/17 at 20 :30 Ondansetron HCl (Zofran Inj) 4 mg Q4H PRN IV NAUSEA AND/OR VOMITING; Start at 20:30 Naloxone HCl 0.2 mg 0.2 mg Q2M PRN IV DECREASED REPIRATORY RATE; Start 03/13/17 at 20:30 Vancomycin HCl 250 ml @ 125 mls/hr Q8H IVPB Last administered on 03/15/17t 09: 32; Admin Dose 125 MLS/HR; Start 03/14/17 at 09:00 Ceftriaxone Sodium (Rocephin) 50 ml @ 100 mls/hr Q24H IVPB ; Start 03/15/17 at 13:00 VANNA TOWNSEND MD Mar 15, 2017 13:49
[2017-03-15] MEDS: CEFTRIAXONE 1 GM/50 ML (PMX) 50 ML IVPB SCH (13:56)
[2017-03-15] MEDS: HYDROCODONE/APAP (5/325) TAB PO PRN (23:03)
[2017-03-16] MEDS: VANCOMYCIN 1 GM (PMX) 250 ML IVPB SCH ×3 (00:27→18:55)
[2017-03-16 07:41] VITALS: BP 122/70; RESP 16
[2017-03-16] MEDS: FOLIC ACID 1 MG TAB PO SCH (09:16)
[2017-03-16] MEDS: HEPARIN 5,000 UNIT/0.5 ML VIAL SC SCH ×2 (09:25→20:33)
[2017-03-16 11:13] LABS: BASOPHILS % 0.4 % (0.0-2.0); EOSINOPHILS # 0.4 10^3/ul (0.0-0.5); HEMATOCRIT 36.8 % (37.0-47.0); LYMPHOCYTES # 2.4 10^3/ul (0.8-2.9); LYMPHOCYTES % 28.4 % (15.0-51.0); MEAN CORPUSCULAR HEMOGLOBIN 30.5 pg (29.0-33.0); MEAN CORPUSCULAR HGB CONC 32.6 g/dl (32.0-37.0); MEAN CORPUSCULAR VOLUME 93.6 fl (82.0-101.0); MEAN PLATELET VOLUME 9.6 fl (7.4-10.4); MONOCYTE # 0.9 10^3/ul (0.3-0.9); MONOCYTES % 10.3 % (0.0-11.0); NEUTROPHIL # 4.6 10^3/ul (1.6-7.5); NEUTROPHILS % 55.5 % (39.0-77.0); PLATELET COUNT 369 10^3/UL (140-415); RED BLOOD COUNT 3.93 10^6/ul (4.20-5.40); RED CELL DISTRIBUTION WIDTH 12.6 % (11.5-14.5); WHITE BLOOD COUNT 8.3 10^3/ul (4.8-10.8)
[2017-03-16 11:41] LABS: CALCIUM 8.9 mg/dl (8.4-10.2); CREATININE 0.62 mg/dl (0.44-1.00); POTASSIUM 3.8 mmol/L (3.5-5.1)
[2017-03-16] MEDS: CEFTRIAXONE 1 GM/50 ML (PMX) 50 ML IVPB SCH (13:10)
[2017-03-16] MEDS ORDERED: LIDOCAINE 1% (MPF) 5 ML VIAL SC ONE (14:00)
--- NOTE | 2017-03-16 15:24 | CONS ---
Date/Time of Note Date/Time of Note DATE: 03/16/17 TIME: 15:23 Assessment/Plan Assessment/Plan Chief Complaint/Hosp Course SUBJECTIVE DATA: Alert, feels good, no fevers Microbiology: All cultures are negative DIAGNOSTICS: MRI of the hip revealed large left hip joint effusion, infected effusion cannot be excluded. No evidence for osteomyelitis or abscess formation. ANTIMICROBIALS: Vancomycin Rocephin OBJECTIVE DATA: GENERAL: Obese well-developed middle-aged woman, who is alert, in no distress. HEENT: Head atraumatic, normocephalic. Sclerae anicteric. Buccal mucosa pink. NECK: Supple. CHEST: Chest rise symmetrical. Breath sounds clear. HEART: S1, S2. ABDOMEN: Soft, bowel sounds present. EXTREMITIES: Without cyanosis. ASSESSMENT: 1. Infected Left hip s/p i&d 2. Systemic inflammatory response syndrome with leukocytosis, fevers, and elevated ESR. 3. History of rheumatoid arthritis, on therapy. 4. Anemia. 5. History of breast augmentation surgery and tummy tuck. PLAN: The patient remains stable, recommend PICC/6 weeks IV abx, f/u with ortho [facility] staff Problems: Consultation Date/Type/Reason Admit Date/Time Mar 11, 2017 at 18:46 Type of Consultation: ID Exam/Review of Systems Vital Signs Vitals Vital Signs Date Time Temp Pulse Resp B/P Pulse Ox O2 Delivery O2 Flow Rate FiO2 03/16/17 07:41 98.2 57 16 122/70 100 03/13/17 21:08 Room Air Intake and Output 03/15/17 03/15/17 03/16/17 15:00 23:00 07:00 Intake Total 500 ml 1220 ml 470 ml Balance 500 ml 1220 ml 470 ml Results Result Diagram: 03/16/17 1057 03/16/17 1057 Results 24 hrs Laboratory Tests Test 03/16/17 10:57 White Blood Count 8.3 Red Blood Count 3.93 L Hemoglobin 12.0 Hematocrit 36.8 L Mean Corpuscular Volume 93.6 Mean Corpuscular Hemoglobin 30.5 Mean Corpuscular Hemoglobin Concent 32.6 Red Cell Distribution Width 12.6 Platelet Count 369 Mean Platelet Volume 9.6 Neutrophils % 55.5 Lymphocytes % 28.4 Monocytes % 10.3 Eosinophils % 5.0 Basophils % 0.4 Nucleated Red Blood Cells % 0.0 Neutrophils # 4.6 Lymphocytes # 2.4 Monocytes # 0.9 Eosinophils # 0.4 Basophils # 0.0 Nucleated Red Blood Cells # 0.0 Sodium Level 140 Potassium Level 3.8 Chloride Level 107 Carbon Dioxide Level 27 Anion Gap 10 Blood Urea Nitrogen 11 Creatinine 0.62 Glucose Level 99 Calcium Level 8.9 Medications Medications Current Medications Acetaminophen (Tylenol Tab) 650 mg Q6H PRN PO PAIN LEVEL 1-3 OR FEVER Last administered on 03/12/17 20:42; Admin Dose 650 MG; Start 03/11/17 at 19:00 Acetaminophen/ Hydrocodone Bitart ([place] (5/325)) 1 tab Q6H PRN PO MODERATE PAIN LEVEL 4-6 Last administered on 03/15/17 23:03; Admin Dose 1 TAB; Start at 19:00 Docusate Sodium (Colace) 100 mg Q12H PRN PO CONSTIPATION; Start 03/11/17 at 19: 00 Magnesium Hydroxide (Milk Of Mag) 30 ml DAILY PRN PO CONSTIPATION; Start at 19:00 Sodium Biphosphate/ Sodium Phosphate (Fleet Enema) 133 ml DAILY PRN [place] CONSTIPATION; Start 03/11/17 at 19:00 Heparin Sodium (Porcine) (Heparin (5000 Units/0.5 ml)) 5,000 unit Q12 SC Last administered on 03/16/17 09:25; Admin Dose 5,000 UNIT; Start 03/11/17 at 21:00 Vancomycin HCl (Vanco Iv Per Pharmacy) VANCOMYCIN PER PHARMACY NOTE XX ; Start 03/11/17 at 19:00 Nitroglycerin (Nitroglycerin (Sl Tab) 0.4 Mg) 1 tab Q5M PRN SL ANGINA; Start at 19:00 Folic Acid (Folic Acid) 1 mg DAILY PO Last administered on 03/16/17 09:16; Admin Dose 1 MG; Start 03/12/17 at 09:00 Oxycodone HCl (Roxicodone) 20 mg Q3H PRN PO PAIN LEVEL 8-10; Start 03/13/17 at 20:30 Oxycodone HCl (Roxicodone) 10 mg Q3H PRN PO PAIN LEVEL 4-7; Start 03/13/17 at 20:30 Oxycodone HCl (Roxicodone) 5 mg Q3H PRN PO PAIN LEVEL 1-3; Start 03/13/17 at 20 :30 Ondansetron HCl (Zofran Inj) 4 mg Q4H PRN IV NAUSEA AND/OR VOMITING; Start at 20:30 Naloxone HCl 0.2 mg 0.2 mg Q2M PRN IV DECREASED REPIRATORY RATE; Start 03/13/17 at 20:30 Vancomycin HCl 250 ml @ 125 mls/hr Q8H IVPB Last administered on 03/16/17 09: 16; Admin Dose 125 MLS/HR; Start 03/14/17 at 09:00 Ceftriaxone Sodium (Rocephin) 50 ml @ 100 mls/hr Q24H IVPB Last administered on 03/16/17 13:10; Admin Dose 100 MLS/HR; Start 03/15/17 at 13:00 STEWART MARTINEZ NP Mar 16, 2017 15:24
--- NOTE | 2017-03-16 17:26 | PN ---
Date/Time of Note Date/Time of Note DATE: 03/16/17 TIME: 17:24 Assessment/Plan VTE Prophylaxis VTE Prophylaxis Intervention: SCD's Lines/Catheters IV Catheter Type (from Nrs): Saline Lock Urinary Cath still in place: No Assessment/Plan Assessment/Plan Assessment/Plan 46 yo F with pmhx RA presented with L hip pain, found to have joint effusion concerning for septic joint sp I&D .. Had chest pain . which has resolved #septic arthritis of L hip, likely result of pt's RA -sp I&D .. f/u ortho 2 weeks as outpatient -cultures negative. ID advising 6 weeks empiric abx given sudhir pus seen on I&D- ->rocephin/vanc PICC line ordered, CM cs placed #chest pain: anxiety v other. Ruled out for ACS with serial troponins; TTE negative. HEART score zero. very unlikely cardiac dc tele done yesterday #RA: CM cs for outpatient rheum f/u per PT pt ok to ambulate with walker likely dc in AM Exam/Review of Systems Vital Signs Vitals Vital Signs Date Time Temp Pulse Resp B/P Pulse Ox O2 Delivery O2 Flow Rate FiO2 03/16/17 07:41 98.2 57 16 122/70 100 03/13/17 21:08 Room Air Intake and Output 03/15/17 03/15/17 03/16/17 15:00 23:00 07:00 Intake Total 500 ml 1220 ml 470 ml Balance 500 ml 1220 ml 470 ml Results Result Diagram: 03/16/17 1057 03/16/17 1057 Results 24 hrs Laboratory Tests Test 03/16/17 10:57 White Blood Count 8.3 Red Blood Count 3.93 L Hemoglobin 12.0 Hematocrit 36.8 L Mean Corpuscular Volume 93.6 Mean Corpuscular Hemoglobin 30.5 Mean Corpuscular Hemoglobin Concent 32.6 Red Cell Distribution Width 12.6 Platelet Count 369 Mean Platelet Volume 9.6 Neutrophils % 55.5 Lymphocytes % 28.4 Monocytes % 10.3 Eosinophils % 5.0 Basophils % 0.4 Nucleated Red Blood Cells % 0.0 Neutrophils # 4.6 Lymphocytes # 2.4 Monocytes # 0.9 Eosinophils # 0.4 Basophils # 0.0 Nucleated Red Blood Cells # 0.0 Sodium Level 140 Potassium Level 3.8 Chloride Level 107 Carbon Dioxide Level 27 Anion Gap 10 Blood Urea Nitrogen 11 Creatinine 0.62 Glucose Level 99 Calcium Level 8.9 Medications Medications Current Medications Acetaminophen (Tylenol Tab) 650 mg Q6H PRN PO PAIN LEVEL 1-3 OR FEVER Last administered on 03/12/17 20:42; Admin Dose 650 MG; Start 03/11/17 at 19:00 Acetaminophen/ Hydrocodone Bitart ([place] (5/325)) 1 tab Q6H PRN PO MODERATE PAIN LEVEL 4-6 Last administered on 03/15/17 23:03; Admin Dose 1 TAB; Start at 19:00 Docusate Sodium (Colace) 100 mg Q12H PRN PO CONSTIPATION; Start 03/11/17 at 19: 00 Magnesium Hydroxide (Milk Of Mag) 30 ml DAILY PRN PO CONSTIPATION; Start at 19:00 Sodium Biphosphate/ Sodium Phosphate (Fleet Enema) 133 ml DAILY PRN [place] CONSTIPATION; Start 03/11/17 at 19:00 Heparin Sodium (Porcine) (Heparin (5000 Units/0.5 ml)) 5,000 unit Q12 SC Last administered on 03/16/17 09:25; Admin Dose 5,000 UNIT; Start 03/11/17 at 21:00 Vancomycin HCl (Vanco Iv Per Pharmacy) VANCOMYCIN PER PHARMACY NOTE XX ; Start 03/11/17 at 19:00 Nitroglycerin (Nitroglycerin (Sl Tab) 0.4 Mg) 1 tab Q5M PRN [place] ANGINA; Start at 19:00 Folic Acid (Folic Acid) 1 mg DAILY PO Last administered on 03/16/17 09:16; Admin Dose 1 MG; Start 03/12/17 at 09:00 Oxycodone HCl (Roxicodone) 20 mg Q3H PRN PO PAIN LEVEL 8-10; Start 03/13/17 at 20:30 Oxycodone HCl (Roxicodone) 10 mg Q3H PRN PO PAIN LEVEL 4-7; Start 03/13/17 at 20:30 Oxycodone HCl (Roxicodone) 5 mg Q3H PRN PO PAIN LEVEL 1-3; Start 03/13/17 at 20 :30 Ondansetron HCl (Zofran Inj) 4 mg Q4H PRN IV NAUSEA AND/OR VOMITING; Start at 20:30 Naloxone HCl 0.2 mg 0.2 mg Q2M PRN IV DECREASED REPIRATORY RATE; Start 03/13/17 at 20:30 Vancomycin HCl 250 ml @ 125 mls/hr Q8H IVPB Last administered on 03/16/17 09: 16; Admin Dose 125 MLS/HR; Start 03/14/17 at 09:00 Ceftriaxone Sodium (Rocephin) 50 ml @ 100 mls/hr Q24H IVPB Last administered on 03/16/17 13:10; Admin Dose 100 MLS/HR; Start 03/15/17 at 13:00 VANNA TOWNSEND MD Mar 16, 2017 17:26
[2017-03-16] MEDS ORDERED: SOD CHLORIDE 0.9% 100 ML ONE (18:53)
--- NOTE | 2017-03-16 19:38 | RADRPT ---
PROCEDURE: XR Chest. CLINICAL INDICATION: Status post PICC placement TECHNIQUE: AP Portable chest. COMPARISON: No relevant prior FINDINGS: The soft tissues and bones are remarkable for a left PICC catheter tip noted in the superior vena ca va. The imaged osseous structures are normal. No focal infiltrates, masses or effusions are present. The mediastinum and the heart size are normal. No pneumothorax is present . IMPRESSION: 1. Left PICC catheter tip in superior vena cava. 2. No radiographic evidence for acute cardiopulmonary disease RPTAT: HDC .Mariah Nuñez MD, MD Date Time Electronically viewed and signed by .Mariah Nuñez MD, MD on 03/16/2017 19:38 .C/
[2017-03-16 19:41] VITALS: BP 142/67; RESP 19
--- NOTE | 2017-03-16 20:02 | RADRPT ---
PROCEDURE: Ultrasound-guided PICC placement CLINICAL INDICATION: Requirement for vascular access. TECHNIQUE: Ultrasound guided PICC placement. COMPARISON: None available. FINDINGS: An ultrasound was performed for left upper extremity PICC placement. IMPRESSION: Ultrasound guided PICC placement. RPTAT: HCTS Clair Cobb Physician Date Time Electronically viewed and signed by Clair Cobb Physician on 03/16/2017 20:01 /
[2017-03-17 00:08] VITALS: BP 133/71; RESP 19
[2017-03-17] MEDS: VANCOMYCIN 1 GM (PMX) 250 ML IVPB SCH ×3 (01:17→16:31)
[2017-03-17 01:31] VITALS: BP 129/74; RESP 20
[2017-03-17 07:28] VITALS: BP 118/71; RESP 18
[2017-03-17] MEDS: FOLIC ACID 1 MG TAB PO SCH (09:02)
[2017-03-17] MEDS: HEPARIN 5,000 UNIT/0.5 ML VIAL SC SCH (09:03)
[2017-03-17 10:57] LABS: BASOPHILS % 0.5 % (0.0-2.0); EOSINOPHILS # 0.3 10^3/ul (0.0-0.5); EOSINOPHILS % 4.4 % (0.0-7.0); HEMATOCRIT 36.3 % (37.0-47.0); HEMOGLOBIN 11.9 g/dl (12.0-16.0); LYMPHOCYTES # 2.2 10^3/ul (0.8-2.9); LYMPHOCYTES % 27.8 % (15.0-51.0); MEAN CORPUSCULAR HEMOGLOBIN 30.9 pg (29.0-33.0); MEAN CORPUSCULAR HGB CONC 32.8 g/dl (32.0-37.0); MEAN CORPUSCULAR VOLUME 94.3 fl (82.0-101.0); MEAN PLATELET VOLUME 9.9 fl (7.4-10.4); MONOCYTE # 0.7 10^3/ul (0.3-0.9); MONOCYTES % 8.5 % (0.0-11.0); NEUTROPHIL # 4.5 10^3/ul (1.6-7.5); NEUTROPHILS % 58.4 % (39.0-77.0); PLATELET COUNT 350 10^3/UL (140-415); RED BLOOD COUNT 3.85 10^6/ul (4.20-5.40); RED CELL DISTRIBUTION WIDTH 12.7 % (11.5-14.5); WHITE BLOOD COUNT 7.8 10^3/ul (4.8-10.8)
[2017-03-17 11:22] LABS: CREATININE 0.57 mg/dl (0.44-1.00); POTASSIUM 3.5 mmol/L (3.5-5.1)
[2017-03-17] MEDS: CEFTRIAXONE 1 GM/50 ML (PMX) 50 ML IVPB SCH (12:55)
--- NOTE | 2017-03-17 13:55 | PDOCDIS ---
Discharge Instructions CONDITION Patient Condition: Stable HOME CARE INSTRUCTIONS: Special Diet: Regular FOLLOW UP/APPOINTMENTS Follow-up Plan Follow up with the orthopedic surgeon within [address] Raúl Soriano Office Address [id number] [place] [address] Office Follow up with your new mineral resources inspector using the info provided by the correctional casework specialist Follow up with the infectious disease doctor within [address] Reyes Office Address [address] [place] [address] Office VANNA TOWNSEND MD Mar 17, 2017 13:55
--- NOTE | 2017-03-17 13:56 | DS ---
Date/Time of Note Date/Time of Note DATE: 03/17/17 TIME: 13:56 Discharge Summary Admission/Discharge Info Admit Date/Time Mar 11, 2017 at 18:46 Discharge Date/Time Discharge Diagnosis septic L hip Patient Condition: Stable Consults orthopedic surgery, infectious disease Procedures 9.16 blood cultures ng; IR guided hip aspirate culture ng CT L hip IMPRESSION: 1. Minimal osteoarthrosis of the left hip. No acute fracture or dislocation. 2. Moderate joint effusion. A follow-up MRI of the left hip may be helpful for additional evaluation. 9.17 MRI L hip 1. Large left hip joint effusion noting edema in the periarticular soft tissues , which is nonspecific. An infected effusion cannot be excluded, to be correlated with the results of the aspirated joint fluid. Inflammatory etiologies may also have this appearance. 2. No evidence for osteomyelitis or abscess formation. 9.17 blood culture ng 9.18 Left hip incision and drainage.-->surgical culture no growth sudhir pus noted in joint space per procedure note 9.19 TTE Conclusions 1. Normal left ventricular systolic function. Normal left ventricular cavity size. Mild concentric left ventricular hypertrophy. Ejection fraction is visually estimated at 60 %. Tissue Doppler/Mitral Doppler indices are within normal limits. 2. No hemodynamically significant aortic stenosis by doppler. Aortic cusps appear mildly calcified. No aortic regurgitation. 3. Mitral valve leaflets appear mildly thickened. Mild mitral annular calcification. Trace mitral regurgitation. 4. Normal appearance of the tricuspid valve. Estimated peak PA systolic pressure 33 mmHg. There is trace tricuspid regurgitation. 9.21 PICC placement Hx of Present Illness A 46-year-old with past medical history of rheumatoid arthritis and anemia, who has been having left hip pain and left thigh pain for the last few days. She denies any prior history of this. Denies any trauma to the area. No recent surgeries. She has been having subjective chills at home, but no fever. She took Tylenol and Motrin at home, which did not relieve her symptoms. Pain is described as sort of a sharp in intensity radiating down the medial part of her thigh. No chest pain or shortness of breath. No upper lower GI bleeding. No diarrhea or constipation. No nausea or vomiting. When she arrives to the ER today she was found with a temperature 100.0, and her white count was also elevated as well. The ER performed a tap, concern about septic infection and apparently the Orthopedic Surgery was actually also call the help consult on the case. The patient also complained of some right shoulder pain and this is for the last 1 or 2 days. She also has been using a cane to help her ambulate for last couple of days. Hospital Course 46 yo F with pmhx RA presented with L hip pain, found to have joint effusion concerning for septic joint sp I&D 9.18. Had chest pain 9.18 which has resolved. Cultures from I&D negative however given pus visualization prudent to treat for septic joint with 6 weeks of IV Rocephin and vanc. Pt also with an episode of chest discomfort during her stay. HEART score zero, serial trops, tele, and TTE unremarkable. Pt stated she was currently without a mds rn. CM cs for new rheum as pt' s septic hip was likely 2/2 her RA. Home Meds Reported Medications Methotrexate* (Methotrexate*) 2.5 Mg Tab, 20 MG PO WEEKLY, TAB 03/11/17 [Ferrous Sulfate 5GR] No Conflict Check, 1 TAB PO BID 03/11/17 [Wild-Plex 85MG] No Conflict Check, 1 CAP PO DAILY 03/11/17 Docusate Sodium* (Colace*) 100 Mg Capsule, 100 MG PO BID, #60 CAP 03/11/17 Folic Acid* (Folic Acid*) 1 Mg Tablet, 1 MG PO DAILY, TAB 03/11/17 Omeprazole* (Omeprazole*) 20 Mg Capsule., 20 MG PO DAILY, #30 CAP 03/11/17 Follow-up Plan Follow up with the orthopedic surgeon within [address] Raúl Soriano Office Address [address] [place] [address] Office Follow up with your new mds rn using the info provided by the vocational case manager Follow up with the infectious disease doctor within [address] Boss Office Address [address] [place] [address] Office Primary Care Provider Care Physician No Primary Time spent on discharge: > 30 minutes Pending Labs Laboratory Tests Test 03/17/17 10:26 White Blood Count 7.810^3/ul (4.8-10.8) Red Blood Count 3.8510^6/ul (4.20-5.40) Hemoglobin 11.9g/dl (12.0-16.0) Hematocrit 36.3% (37.0-47.0) Mean Corpuscular Volume 94.3fl (82.0-101.0) Mean Corpuscular Hemoglobin 30.9pg (29.0-33.0) Mean Corpuscular Hemoglobin Concent 32.8g/dl (32.0-37.0) Red Cell Distribution Width 12.7% (11.5-14.5) Platelet Count 58565^3/UL (140-415) Mean Platelet Volume 9.9fl (7.4-10.4) Neutrophils % 58.4% (39.0-77.0) Lymphocytes % 27.8% (15.0-51.0) Monocytes % 8.5% (0.0-11.0) Eosinophils % 4.4% (0.0-7.0) Basophils % 0.5% (0.0-2.0) Nucleated Red Blood Cells % 0.0/100WBC (0.0-0.0) Neutrophils # 4.510^3/ul (1.6-7.5) Lymphocytes # 2.210^3/ul (0.8-2.9) Monocytes # 0.710^3/ul (0.3-0.9) Eosinophils # 0.310^3/ul (0.0-0.5) Basophils # 0.010^3/ul (0.0-0.1) Nucleated Red Blood Cells # 0.010^3/ul (0.0-0.0) Sodium Level 139mmol/L (135-144) Potassium Level 3.5mmol/L (3.5-5.1) Chloride Level 105mmol/L (97-110) Carbon Dioxide Level 26mmol/L (21-31) Anion Gap 12 (8-16) Blood Urea Nitrogen 12mg/dl (7-20) Creatinine 0.57mg/dl (0.44-1.00) Glucose Level 143mg/dl (70-220) Calcium Level 9.0mg/dl (8.4-10.2) Copies To: CC: BRONSON BOSS MD; KARL SINGH MD, ELLEN MD Mar 17, 2017 13:56
[2017-03-17 14:00] VITALS: BP 118/83; RESP 18
--- NOTE | 2017-03-17 14:12 | CONS ---
Date/Time of Note Date/Time of Note DATE: 03/17/17 TIME: 14:11 Assessment/Plan Assessment/Plan Chief Complaint/Hosp Course SUBJECTIVE DATA: Alert, feels good, no fevers Microbiology: All cultures are negative DIAGNOSTICS: MRI of the hip revealed large left hip joint effusion, infected effusion cannot be excluded. No evidence for osteomyelitis or abscess formation. ANTIMICROBIALS: Vancomycin Rocephin OBJECTIVE DATA: GENERAL: Obese well-developed middle-aged woman, who is alert, in no distress. HEENT: Head atraumatic, normocephalic. Sclerae anicteric. Buccal mucosa pink. NECK: Supple. CHEST: Chest rise symmetrical. Breath sounds clear. HEART: S1, S2. ABDOMEN: Soft, bowel sounds present. EXTREMITIES: Without cyanosis. ASSESSMENT: 1. Infected Left hip s/p i&d 2. Systemic inflammatory response syndrome with leukocytosis, fevers, and elevated ESR. 3. History of rheumatoid arthritis, on therapy. 4. Anemia. 5. History of breast augmentation surgery and tummy tuck. PLAN: The patient remains stable, pending dc home on current abx for 6 weeks DW staff Problems: Consultation Date/Type/Reason Admit Date/Time Mar 11, 2017 at 18:46 Type of Consultation: ID Exam/Review of Systems Vital Signs Vitals Vital Signs Date Time Temp Pulse Resp B/P Pulse Ox O2 Delivery O2 Flow Rate FiO2 03/17/17 07:28 98.7 54 18 118/71 98 03/13/17 21:08 Room Air Intake and Output 03/16/17 03/16/17 03/17/17 15:00 23:00 07:00 Intake Total 1020 ml 550 ml Balance 1020 ml 550 ml Results Result Diagram: 03/17/17 1026 03/17/17 1026 Results 24 hrs Laboratory Tests Test 03/17/17 10:26 White Blood Count 7.8 Red Blood Count 3.85 L Hemoglobin 11.9 L Hematocrit 36.3 L Mean Corpuscular Volume 94.3 Mean Corpuscular Hemoglobin 30.9 Mean Corpuscular Hemoglobin Concent 32.8 Red Cell Distribution Width 12.7 Platelet Count 350 Mean Platelet Volume 9.9 Neutrophils % 58.4 Lymphocytes % 27.8 Monocytes % 8.5 Eosinophils % 4.4 Basophils % 0.5 Nucleated Red Blood Cells % 0.0 Neutrophils # 4.5 Lymphocytes # 2.2 Monocytes # 0.7 Eosinophils # 0.3 Basophils # 0.0 Nucleated Red Blood Cells # 0.0 Sodium Level 139 Potassium Level 3.5 Chloride Level 105 Carbon Dioxide Level 26 Anion Gap 12 Blood Urea Nitrogen 12 Creatinine 0.57 Glucose Level 143 # Calcium Level 9.0 Medications Medications Current Medications Acetaminophen (Tylenol Tab) 650 mg Q6H PRN PO PAIN LEVEL 1-3 OR FEVER Last administered on 03/12/17 20:42; Admin Dose 650 MG; Start 03/11/17 at 19:00 Acetaminophen/ Hydrocodone Bitart ([place] (5/325)) 1 tab Q6H PRN PO MODERATE PAIN LEVEL 4-6 Last administered on 03/15/17 23:03; Admin Dose 1 TAB; Start at 19:00 Docusate Sodium (Colace) 100 mg Q12H PRN PO CONSTIPATION; Start 03/11/17 at 19: 00 Magnesium Hydroxide (Milk Of Mag) 30 ml DAILY PRN PO CONSTIPATION; Start at 19:00 Sodium Biphosphate/ Sodium Phosphate (Fleet Enema) 133 ml DAILY PRN SC CONSTIPATION; Start 03/11/17 at 19:00 Heparin Sodium (Porcine) (Heparin (5000 Units/0.5 ml)) 5,000 unit Q12 SC Last administered on 03/17/17 09:03; Admin Dose 5,000 UNIT; Start 03/11/17 at 21:00 Vancomycin HCl (Vanco Iv Per Pharmacy) VANCOMYCIN PER PHARMACY NOTE XX ; Start 03/11/17 at 19:00 Nitroglycerin (Nitroglycerin (Sl Tab) 0.4 Mg) 1 tab Q5M PRN SL ANGINA; Start at 19:00 Folic Acid (Folic Acid) 1 mg DAILY PO Last administered on 03/17/17 09:02; Admin Dose 1 MG; Start 03/12/17 at 09:00 Oxycodone HCl (Roxicodone) 20 mg Q3H PRN PO PAIN LEVEL 8-10; Start 03/13/17 at 20:30 Oxycodone HCl (Roxicodone) 10 mg Q3H PRN PO PAIN LEVEL 4-7; Start 03/13/17 at 20:30 Oxycodone HCl (Roxicodone) 5 mg Q3H PRN PO PAIN LEVEL 1-3; Start 03/13/17 at 20 :30 Ondansetron HCl (Zofran Inj) 4 mg Q4H PRN IV NAUSEA AND/OR VOMITING; Start at 20:30 Naloxone HCl 0.2 mg 0.2 mg Q2M PRN IV DECREASED REPIRATORY RATE; Start 03/13/17 at 20:30 Vancomycin HCl 250 ml @ 125 mls/hr Q8H IVPB Last administered on 03/17/17 09: 02; Admin Dose 125 MLS/HR; Start 03/14/17 at 09:00 Ceftriaxone Sodium (Rocephin) 50 ml @ 100 mls/hr Q24H IVPB Last administered on 03/17/17 12:55; Admin Dose 100 MLS/HR; Start 03/15/17 at 13:00 Miscellaneous Information (*Rx Drug Level Order Reminder*) 1 ONCE ONCE XX ; Start 03/18/17 at 00:00; Stop 03/18/17 at 00:01 STEWART MARTINEZ NP Mar 17, 2017 14:12
[2017-03-17 19:14] VITALS: BP 138/84; RESP 20
[2017-03-18 07:30] VITALS: BP 107/64; RESP 18
== END 2017-03-17 19:22 | disposition home health service (06) | DRG 549 ==
LOC: FTE 12:09 → PP2 18:46 → TEL 03-13 19:20 → MS2 03-17 00:58
PROVIDERS: ADMIT Hospitalist; ATTEND Hospitalist
PROC: 0SJB3ZZ Inspection of Left Hip Joint, Percutaneous Approach (ICD-10-PCS; 2017-03-11)
PROC: 0S9B3ZX Drainage of Left Hip Joint, Percutaneous Approach, Diagnostic (ICD-10-PCS; 2017-03-11)
PROC: 0S9B0ZX Drainage of Left Hip Joint, Open Approach, Diagnostic (ICD-10-PCS; principal; 2017-03-14)
PROC: 02HV33Z Insertion of Infusion Device into Superior Vena Cava, Percutaneous Approach (ICD-10-PCS; 2017-03-16)
DX: M00.9 Pyogenic arthritis, unspecified (principal); R65.10 Systemic inflammatory response syndrome (SIRS) of non-infectious origin without acute organ dysfunction; D64.9 Anemia, unspecified; M25.452 Effusion, left hip; M06.9 Rheumatoid arthritis, unspecified; R07.9 Chest pain, unspecified
CPT/HCPCS: 36415; 36569; 71010; 73700; 73721; 76937; 77002; 80048; 80061; 80202; 81001; 83036; 83735; 84100; 84439; 84443; 84484; 84703; 85025; 85651; 86140; 87040; 87070; 87086; 89051; 93005; 93306; 96374; 96375; 96376; 97110; 97116; 97162; J0131; J0690; J0696; J1100; J1170; J1644; J1885; J2060; J2175; J2270; J2405; J2543; J2710; J2920; J3010; J3370; J3480; J7030; Q9967